=== PATIENT | female | born 1990 | race Caucasian/White ===

== ENCOUNTER 2018-04-22 18:11 | Emergency (ER) | payer OTHER, MEDICAID, SELFPAY ==
--- NOTE | 2018-04-22 18:13 | ED.ABDPAIN ---
HPI - Abdominal Pain <MARIE Ibarra - Last Filed: 04/22/18 21:53> General Chief Complaint: Urogenital-Female Stated Complaint: STATES SEVERE ABDOMINAL AND LOWER BACK PAIN Time Seen by Provider: 04/22/18 18:13 Source: patient History of Present Illness HPI narrative: 28-year-old female here for complaint of pain into her left lower abdomen for the last 10 days. She was treated for UTI from her primary care provider's office and prescribed Augmentin. She reports that her symptoms did not resolve after completing the antibiotic regimen. She reports worsening pain over the last 4 days. She denies any fevers but states she has some instances of chills. Pain is to the left lower quadrant radiates into her back/flank area. She states she had slight amount of burning with urination. Last bowel movement was yesterday and was normal. No vomiting. However she does have some nausea at times. She denies any trauma to the area. No other concerns or complaints. She denies any stressors or relievers of the pain. MD complaint: abdominal pain Related Data Home Medications Medication Instructions Recorded Confirmed omeprazole 20 mg PO QDAY #0 11/20/16 Previous Rx's Medication Instructions Recorded albuterol sulfate [Ventolin HFA] 1 - 2 puff INH QID #1 inh 11/20/16 prednisone 40 mg PO AMCC 4 Days #0 tab 11/20/16 norelgestromin-ethin.estradiol 1 tdm TD QWEEK #9 patch 08/04/17 [Xulane] ciprofloxacin HCl 500 mg PO Q12H #14 tab 04/22/18 hydrocodone-acetaminophen 1 tab PO Q6H PRN #12 tab 04/22/18 metronidazole 500 mg PO TID #21 tab 04/22/18 Allergies Allergy/AdvReac Type Severity Reaction Status Date / Time No Known Drug Allergies Allergy Verified 04/22/18 18:18 Review of Systems <MARIE Ibarra - Last Filed: 04/22/18 21:53> Constitutional Reports chills, Denies fever(s), Denies lethargy and Denies weakness Eyes Denies change in vision, Denies eye discharge, Denies irritation and Denies loss of vision Cardiovascular Denies chest pain, Denies irregular heart rhythm, Denies lightheadedness, Denies palpitations and Denies orthopnea Gastrointestinal Gastrointestinal: Reports abdominal pain Genitourinary Denies hematuria, Reports dysuria, Reports flank pain, Denies urinary incontinence and Denies urinary urgency Musculoskeletal Denies back pain, Denies muscle weakness, Denies numbness and Denies tingling Integumentary/Breasts Denies pruritus, Denies erythema, Denies rash and Denies wounds Neurologic Denies confusion, Denies loss of vision, Denies numbness, Denies tingling and Denies weakness Psychiatric Denies anxiety, Denies confusion, Denies depression, Denies homicidal ideation and Denies suicidal ideation Endocrine Denies palpitations Hematologic/Lymphatic Denies easy bruising Exam <MARIE Ibarra - Last Filed: 04/22/18 21:53> Initial Vital Signs Initial Vital Signs: Vital Signs Temperature 97.7 F 04/22/18 18:18 Pulse Rate 101 H 04/22/18 18:18 Respiratory Rate 20 04/22/18 18:18 Blood Pressure 134/76 H 04/22/18 18:18 Pulse Oximetry 97 04/22/18 18:18 Const General: cooperative and well developed Nutritional Appearance: well nourished Orientation: alert, awake, oriented x3 and not confused HENAL Mouth: oral mucosae normal and moist mucous membranes Eyes Conjunctivae: conjunctivae normal Sclera: sclerae normal Pupils: PERRL EOM: EOM intact bilaterally Resp Effort & Inspection: normal respiratory effort, able to speak in complete sentences, no respiratory distress and no use of accessory muscles Auscultation: clear to auscultation bilaterally, no rales, no rhonchi and no wheezes Cardio Rate: regular rate Rhythm: regular rhythm Heart Sounds: no click, no gallops, no murmurs and no rubs GI Inspection: non-distended Palpation: soft, no hepatosplenomegaly, No guarding, No pulsatile mass and tender (Tender left lower quadrant) Auscultation: normal bowel sounds General: No CVA tenderness Skin General: no rashes or lesions noted, No jaundice and No petechiae <Mamta Diaz DO - Last Filed: 04/23/18 00:48> Initial Vital Signs Initial Vital Signs: Vital Signs Temperature 97.7 F 04/22/18 18:18 Pulse Rate 101 H 04/22/18 18:18 Respiratory Rate 20 04/22/18 18:18 Blood Pressure 134/76 H 04/22/18 18:18 Pulse Oximetry 97 04/22/18 18:18 Course <MARIE Ibarra - Last Filed: 04/22/18 21:53> Orders Ordered: ED Orders 04/22/18 18:26 CT abdomen pelvis w con Stat 04/22/18 18:40 Complete Blood Count AUTO DIFF Stat Comprehensive Metabolic Panel Stat Lipase Stat Discontinued Medications Sodium Chloride (Normal Saline 0.9%) 1,000 mls @ 150 mls/hr IV CONT VINICIUS Last Infusion: 04/22/18 20:06 Dose: 0 mls/hr Admin: 04/22/18 18:44 Dose: 1,000 mls/hr Vital Signs - 8 hr 04/22/18 18:18 04/22/18 20:06 Temperature 97.7 F Pulse Rate 101 H 74 Respiratory Rate 20 17 Blood Pressure 134/76 H Blood Pressure [Right Arm] 124/80 H Pulse Oximetry 97 100 <Mamta Diaz DO - Last Filed: 04/23/18 00:48> Orders Ordered: ED Orders 04/22/18 18:26 CT abdomen pelvis w con Stat 04/22/18 18:40 Complete Blood Count AUTO DIFF Stat Comprehensive Metabolic Panel Stat Lipase Stat Discontinued Medications Sodium Chloride (Normal Saline 0.9%) 1,000 mls @ 150 mls/hr IV CONT VINICIUS Last Infusion: 04/22/18 20:06 Dose: 0 mls/hr Admin: 04/22/18 18:44 Dose: 1,000 mls/hr Vital Signs - 8 hr 04/22/18 18:18 04/22/18 20:06 Temperature 97.7 F Pulse Rate 101 H 74 Respiratory Rate 20 17 Blood Pressure 134/76 H Blood Pressure [Right Arm] 124/80 H Pulse Oximetry 97 100 MDM - Abdominal Pain <MARIE Ibarra - Last Filed: 04/22/18 21:53> Lab Data Result diagrams: 04/22/18 18:40 04/22/18 18:40 Lab Results 04/22/18 04/22/18 Range/Units 18:40 18:40 WBC 13.2 H (4.5-11.0) X10^3/uL RBC 4.82 (4.0-5.2) X10^6/uL Hgb 12.8 (12.0-16.0) g/dL Hct 38.5 (36-46) % MCV 79.8 L (80-100) fL MCH 26.6 (26-34) PG MCHC 33.3 (30-36) % RDW 14.6 (11.6-14.8) % Plt Count 366 (150-400) X10^3/uL Neut % (Auto) 71.1 (50-75) % Lymph % (Auto) 19.1 L (25-40) % Haines % (Auto) 6.6 (3-14) % Eos % (Auto) 2.8 (2-4) % Baso % (Auto) 0.4 (0-2) % Neut # (Auto) 9400 H (2270-1304) /uL Sodium 138 (137-145) mmol/L Potassium 3.6 (3.4-5.1) mmol/L Chloride 104 (98-107) mmol/L Carbon Dioxide 23 (22-32) mmol/L BUN 11 (7-17) mg/dL Creatinine 0.60 (0.52-1.04) mg/dL Estimated GFR > 60.0 (>60) mL/min BUN/Creatinine Ratio 18.3 (6-22) Glucose 94 (70-100) mg/dL Calcium 8.7 (8.4-10.2) mg/dL Total Bilirubin 0.4 (0.2-1.3) mg/dL AST 25 (14-36) IU/L ALT 38 (9-52) IU/L Alkaline Phosphatase 88 (38-126) U/L Total Protein 7.2 (6.3-8.2) g/dL Albumin 3.7 (3.5-5.0) g/dL Globulin 3.5 (1.7-4.1) g/dL Albumin/Globulin Ratio 1.1 (1.0-2.8) Lipase 30 (23-300) U/L Imaging Data CT scan - abdomen: Radiologist's impression: Signed Patient: Yamini Monterroso MR#: [id number] : 1990 Acct:[id number] Age/Sex: 28 / F Date of Service: 04/22/18 Loc: ED Accession Number: [id number] Procedure: CT abdomen pelvis w con Ordering Provider: Jhon Thornton PROCEDURE: CT ABDOMEN PELVIS W CON INDICATIONS: Left lower quadrant pain for last 4 days TECHNIQUE: After the administration of intravenous contrast, 5 mm thick sections acquired from the diaphragm to the symphysis. 5 mm coronal and sagittal reformats were acquired. For radiation dose reduction, the following was used: automated exposure control, adjustment of mA and/or kV according to patient size. COMPARISON: None. FINDINGS: Image quality: Excellent. ABDOMEN: Lung bases: Lung bases are clear. Heart size is normal. Solid organs: Liver is normal in size and enhancement. Gallbladder is within normal limits. Biliary system is non dilated. Pancreas enhances normally. Spleen is normal in size and enhancement. No adrenal nodules. Kidneys demonstrate normal size and enhancement, without hydronephrosis. Peritoneum and bowel: Bowel loops demonstrate normal wall thickness and caliber. No free fluid or air. The appendix is normal in caliber. Small, approximately 2 mm diameter appendicolith is noted. Nodes and vessels: No retroperitoneal or mesenteric adenopathy by size criteria. Mild inflammatory changes are noted along the antimesenteric margin of the distal left colon. There is a normal appearing fat situated centrally within the inflammatory changes. Findings compatible with distal left colon and epiploic appendagitis. Aorta and inferior vena cava are normal in size. Miscellaneous: No ventral hernias. PELVIS: Genitourinary: Bladder wall thickness is normal. Small bilateral adnexal cysts. Miscellaneous: No inguinal hernias or adenopathy. Bones: No suspicious bony lesions. No vertebral body compression fractures. IMPRESSION: 1. Left lower colon epiploic appendagitis. 2. Dictated by: Saadia Bedoya MD, PhD on 04/22/2018 at 19:36 Approved by: Saadia Bedoya MD, PhD on 04/22/2018 at 19:42 MDM Narrative Medical decision making narrative: CT of the abdomen was obtained and shows findings consistent with epiploic appendagitis. CBC shows elevated white count at 1:14 p.m. K. Otherwise CBC and Chem panel were unremarkable. Urinalysis was negative for urinary tract infection. Urine was also negative. Discussed case with surgery Dr. Magana who will follow up with patient tomorrow morning. Antibiotics were recommended by surgery she is placed on Cipro and metronidazole. [id number] Tylenol/Motrin as needed for discomfort. Hamilton is prescribed for breakthrough pain. For any worsening symptoms return to the emergency room follow-up with surgery follow up with primary care provider. <Mamta Diaz, - Last Filed: 04/23/18 00:48> Lab Data Lab Results 04/22/18 04/22/18 Range/Units 18:40 18:40 WBC 13.2 H (4.5-11.0) X10^3/uL RBC 4.82 (4.0-5.2) X10^6/uL Hgb 12.8 (12.0-16.0) g/dL Hct 38.5 (36-46) % MCV 79.8 L (80-100) fL MCH 26.6 (26-34) PG MCHC 33.3 (30-36) % RDW 14.6 (11.6-14.8) % Plt Count 366 (150-400) X10^3/uL Neut % (Auto) 71.1 (50-75) % Lymph % (Auto) 19.1 L (25-40) % Haines % (Auto) 6.6 (3-14) % Eos % (Auto) 2.8 (2-4) % Baso % (Auto) 0.4 (0-2) % Neut # (Auto) 9400 H (0154-6786) /uL Sodium 138 (137-145) mmol/L Potassium 3.6 (3.4-5.1) mmol/L Chloride 104 (98-107) mmol/L Carbon Dioxide 23 (22-32) mmol/L BUN 11 (7-17) mg/dL Creatinine 0.60 (0.52-1.04) mg/dL Estimated GFR > 60.0 (>60) mL/min BUN/Creatinine Ratio 18.3 (6-22) Glucose 94 (70-100) mg/dL Calcium 8.7 (8.4-10.2) mg/dL Total Bilirubin 0.4 (0.2-1.3) mg/dL AST 25 (14-36) IU/L ALT 38 (9-52) IU/L Alkaline Phosphatase 88 (38-126) U/L Total Protein 7.2 (6.3-8.2) g/dL Albumin 3.7 (3.5-5.0) g/dL Globulin 3.5 (1.7-4.1) g/dL Albumin/Globulin Ratio 1.1 (1.0-2.8) Lipase 30 (23-300) U/L Discharge Plan Departure Patient Disposition: Home, Self-Care Clinical Impression: Abdominal pain Discharge Date/Time: 04/22/18 20:47 Interventions: ED Discharge Assessment Last Done: 04/22/18 20:45 Instructions: Acute Abdominal Pain Activity Restrictions/Additional Instructions: CT of the abdomen shows epiploic appendagitis which is a inflammation of pouch is along side the colon or large intestine. You are placed on an antibiotic called ciprofloxacin and metronidazole use as directed. Use [id number] Tylenol or Motrin as needed for any discomfort. Follow up with surgery tomorrow morning at 9 o'clock in the morning at the surgery office Dr. Magana will see you then. For any worsening symptoms return to the emergency room. Follow up with her primary care provider. Prescriptions: New metronidazole 500 mg tablet 500 mg PO TID Qty: 21 RF: 0 ciprofloxacin HCl 500 mg tablet 500 mg PO Q12H Qty: 14 RF: 0 hydrocodone-acetaminophen 5-325 mg tablet 1 tab PO Q6H PRN (Reason: pain) Qty: 12 RF: 0 No Action omeprazole 20 MG capsule,delayed release(DR/EC) 20 mg PO QDAY Qty: 0 RF: 0 prednisone 20 MG tablet 40 mg PO AMCC 4 Days Qty: 0 RF: 0 albuterol sulfate [Ventolin HFA] 90 MCG/PUFF HFA aerosol inhaler 1 - 2 puff INH QID Qty: 1 RF: 3 norelgestromin-ethin.estradiol [Xulane] 0.15 MG/0.035 MG patch weekly 1 tdm TD QWEEK Qty: 9 RF: 4 Referrals: Gurvinder Magana MD [Physician] - Dago Ramirez MD [Primary Care Provider] - <Mamta Diaz DO - Last Filed: 04/23/18 00:48> Cosign ED Attending Marielena Attestation: I was immediately available in the department for consultation. Documentation has been reviewed. I agree with assessment and plan.
[2018-04-22 18:18] VITALS: BP 134/76; PULSE 101; RESP 20; TEMP 36.5; O2SAT 97
--- NOTE | 2018-04-22 18:26 | DI.CT.S_ITS ---
PROCEDURE: CT ABDOMEN PELVIS W CON INDICATIONS: Left lower quadrant pain for last 4 days TECHNIQUE: After the administration of intravenous contrast, 5 mm thick sections acquired from the diaphragm to the symphysis. 5 mm coronal and sagittal reformats were acquired. For radiation dose reduction, the following was used: automated exposure control, adjustment of mA and/or kV according to patient size. COMPARISON: None. FINDINGS: Image quality: Excellent. ABDOMEN: Lung bases: Lung bases are clear. Heart size is normal. Solid organs: Liver is normal in size and enhancement. Gallbladder is within normal limits. Biliary system is non dilated. Pancreas enhances normally. Spleen is normal in size and enhancement. No adrenal nodules. Kidneys demonstrate normal size and enhancement, without hydronephrosis. Peritoneum and bowel: Bowel loops demonstrate normal wall thickness and caliber. No free fluid or air. The appendix is normal in caliber. Small, approximately 2 mm diameter appendicolith is noted. Nodes and vessels: No retroperitoneal or mesenteric adenopathy by size criteria. Mild inflammatory changes are noted along the antimesenteric margin of the distal left colon. There is a normal appearing fat situated centrally within the inflammatory changes. Findings compatible with distal left colon and epiploic appendagitis. Aorta and inferior vena cava are normal in size. Miscellaneous: No ventral hernias. PELVIS: Genitourinary: Bladder wall thickness is normal. Small bilateral adnexal cysts. Miscellaneous: No inguinal hernias or adenopathy. Bones: No suspicious bony lesions. No vertebral body compression fractures. IMPRESSION: 1. Left lower colon epiploic appendagitis. 2. Dictated by: Saadia Bedoya MD, PhD on 04/22/2018 at 19:36 Approved by: Saadia Bedoya MD, PhD on 04/22/2018 at 19:42
--- NOTE | 2018-04-22 18:38 | ED_ITS ---
HPI - Abdominal Pain <MARIE Ibarra - Last Filed: 04/22/18 21:53> General Chief Complaint: Urogenital-Female Stated Complaint: STATES SEVERE ABDOMINAL AND LOWER BACK PAIN Time Seen by Provider: 04/22/18 18:13 Source: patient History of Present Illness HPI narrative: 28-year-old female here for complaint of pain into her left lower abdomen for the last 10 days. She was treated for UTI from her primary care provider's office and prescribed Augmentin. She reports that her symptoms did not resolve after completing the antibiotic regimen. She reports worsening pain over the last 4 days. She denies any fevers but states she has some instances of chills. Pain is to the left lower quadrant radiates into her back/ flank area. She states she had slight amount of burning with urination. Last bowel movement was yesterday and was normal. No vomiting. However she does have some nausea at times. She denies any trauma to the area. No other concerns or complaints. She denies any stressors or relievers of the pain. MD complaint: abdominal pain Related Data Home Medications Medication Instructions Recorded Confirmed omeprazole 20 mg PO QDAY #0 11/20/16 Previous Rx's Medication Instructions Recorded albuterol sulfate [Ventolin HFA] 1 - 2 puff INH QID #1 inh 11/20/16 prednisone 40 mg PO AMCC 4 Days #0 tab 11/20/16 norelgestromin-ethin.estradiol 1 tdm TD QWEEK #9 patch 08/04/17 [Xulane] ciprofloxacin HCl 500 mg PO Q12H #14 tab 04/22/18 hydrocodone-acetaminophen 1 tab PO Q6H PRN #12 tab 04/22/18 metronidazole 500 mg PO TID #21 tab 04/22/18 Allergies Allergy/AdvReac Type Severity Reaction Status Date / Time No Known Drug Allergies Allergy Verified 04/22/18 18:18 Review of Systems <MARIE Ibarra - Last Filed: 04/22/18 21:53> Constitutional Reports chills, Denies fever(s), Denies lethargy and Denies weakness Eyes Denies change in vision, Denies eye discharge, Denies irritation and Denies loss of vision Cardiovascular Denies chest pain, Denies irregular heart rhythm, Denies lightheadedness, Denies palpitations and Denies orthopnea Gastrointestinal Gastrointestinal: Reports abdominal pain Genitourinary Denies hematuria, Reports dysuria, Reports flank pain, Denies urinary incontinence and Denies urinary urgency Musculoskeletal Denies back pain, Denies muscle weakness, Denies numbness and Denies tingling Integumentary/Breasts Denies pruritus, Denies erythema, Denies rash and Denies wounds Neurologic Denies confusion, Denies loss of vision, Denies numbness, Denies tingling and Denies weakness Psychiatric Denies anxiety, Denies confusion, Denies depression, Denies homicidal ideation and Denies suicidal ideation Endocrine Denies palpitations Hematologic/Lymphatic Denies easy bruising Exam <MARIE Ibarra - Last Filed: 04/22/18 21:53> Initial Vital Signs Initial Vital Signs: Vital Signs Temperature 97.7 F 04/22/18 18:18 Pulse Rate 101 H 04/22/18 18:18 Respiratory Rate 20 04/22/18 18:18 Blood Pressure 134/76 H 04/22/18 18:18 Pulse Oximetry 97 04/22/18 18:18 Const General: cooperative and well developed Nutritional Appearance: well nourished Orientation: alert, awake, oriented x3 and not confused HENOK Mouth: oral mucosae normal and moist mucous membranes Eyes Conjunctivae: conjunctivae normal Sclera: sclerae normal Pupils: PERRL EOM: EOM intact bilaterally Resp Effort & Inspection: normal respiratory effort, able to speak in complete sentences, no respiratory distress and no use of accessory muscles Auscultation: clear to auscultation bilaterally, no rales, no rhonchi and no wheezes Cardio Rate: regular rate Rhythm: regular rhythm Heart Sounds: no click, no gallops, no murmurs and no rubs GI Inspection: non-distended Palpation: soft, no hepatosplenomegaly, No guarding, No pulsatile mass and tender (Tender left lower quadrant) Auscultation: normal bowel sounds General: No CVA tenderness Skin General: no rashes or lesions noted, No jaundice and No petechiae <Mamta Diaz DO - Last Filed: 04/23/18 00:48> Initial Vital Signs Initial Vital Signs: Vital Signs Temperature 97.7 F 04/22/18 18:18 Pulse Rate 101 H 04/22/18 18:18 Respiratory Rate 20 04/22/18 18:18 Blood Pressure 134/76 H 04/22/18 18:18 Pulse Oximetry 97 04/22/18 18:18 Course <MRAIE Ibarra - Last Filed: 04/22/18 21:53> Orders Ordered: ED Orders 04/22/18 18:26 CT abdomen pelvis w con Stat 04/22/18 18:40 Complete Blood Count AUTO DIFF Stat Comprehensive Metabolic Panel Stat Lipase Stat Discontinued Medications Sodium Chloride (Normal Saline 0.9%) 1,000 mls @ 150 mls/hr IV CONT VINICIUS Last Infusion: 04/22/18 20:06 Dose: 0 mls/hr Admin: 04/22/18 18:44 Dose: 1,000 mls/hr Vital Signs - 8 hr 04/22/18 18:18 04/22/18 20:06 Temperature 97.7 F Pulse Rate 101 H 74 Respiratory Rate 20 17 Blood Pressure 134/76 H Blood Pressure [Right Arm] 124/80 H Pulse Oximetry 97 100 <Mamta Diaz DO - Last Filed: 04/23/18 00:48> Orders Ordered: ED Orders 04/22/18 18:26 CT abdomen pelvis w con Stat 04/22/18 18:40 Complete Blood Count AUTO DIFF Stat Comprehensive Metabolic Panel Stat Lipase Stat Discontinued Medications Sodium Chloride (Normal Saline 0.9%) 1,000 mls @ 150 mls/hr IV CONT VINICIUS Last Infusion: 04/22/18 20:06 Dose: 0 mls/hr Admin: 04/22/18 18:44 Dose: 1,000 mls/hr Vital Signs - 8 hr 04/22/18 18:18 04/22/18 20:06 Temperature 97.7 F Pulse Rate 101 H 74 Respiratory Rate 20 17 Blood Pressure 134/76 H Blood Pressure [Right Arm] 124/80 H Pulse Oximetry 97 100 MDM - Abdominal Pain <MARIE Ibarra - Last Filed: 04/22/18 21:53> Lab Data Result diagrams: 04/22/18 18:40 04/22/18 18:40 Lab Results 04/22/18 04/22/18 Range/Units 18:40 18:40 WBC 13.2 H (4.5-11.0) X10^3/uL RBC 4.82 (4.0-5.2) X10^6/uL Hgb 12.8 (12.0-16.0) g/dL Hct 38.5 (36-46) % MCV 79.8 L (80-100) fL MCH 26.6 (26-34) PG MCHC 33.3 (30-36) % RDW 14.6 (11.6-14.8) % Plt Count 366 (150-400) X10^3/uL Neut % (Auto) 71.1 (50-75) % Lymph % (Auto) 19.1 L (25-40) % [place] % (Auto) 6.6 (3-14) % Eos % (Auto) 2.8 (2-4) % Baso % (Auto) 0.4 (0-2) % Neut # (Auto) 9400 H (3863-5981) /uL Sodium 138 (137-145) mmol/L Potassium 3.6 (3.4-5.1) mmol/L Chloride 104 (98-107) mmol/L Carbon Dioxide 23 (22-32) mmol/L BUN 11 (7-17) mg/dL Creatinine 0.60 (0.52-1.04) mg/dL Estimated GFR > 60.0 (>60) mL/min BUN/Creatinine Ratio 18.3 (6-22) Glucose 94 (70-100) mg/dL Calcium 8.7 (8.4-10.2) mg/dL Total Bilirubin 0.4 (0.2-1.3) mg/dL AST 25 (14-36) IU/L ALT 38 (9-52) IU/L Alkaline Phosphatase 88 (38-126) U/L Total Protein 7.2 (6.3-8.2) g/dL Albumin 3.7 (3.5-5.0) g/dL Globulin 3.5 (1.7-4.1) g/dL Albumin/Globulin Ratio 1.1 (1.0-2.8) Lipase 30 (23-300) U/L Imaging Data CT scan - abdomen: Radiologist's impression: Signed Patient: Yamini Monterroso MR#: [id number] : 1990 Acct:[id number] Age/Sex: 28 / F Date of Service: 04/22/18 Loc: ED Accession Number: [id number] Procedure: CT abdomen pelvis w con Ordering Provider: Jhon Thornton PROCEDURE: CT ABDOMEN PELVIS W CON INDICATIONS: Left lower quadrant pain for last 4 days TECHNIQUE: After the administration of intravenous contrast, 5 mm thick sections acquired from the diaphragm to the symphysis. 5 mm coronal and sagittal reformats were acquired. For radiation dose reduction, the following was used: automated exposure control, adjustment of mA and/or kV according to patient size. COMPARISON: None. FINDINGS: Image quality: Excellent. ABDOMEN: Lung bases: Lung bases are clear. Heart size is normal. Solid organs: Liver is normal in size and enhancement. Gallbladder is within normal limits. Biliary system is non dilated. Pancreas enhances normally. Spleen is normal in size and enhancement. No adrenal nodules. Kidneys demonstrate normal size and enhancement, without hydronephrosis. Peritoneum and bowel: Bowel loops demonstrate normal wall thickness and caliber. No free fluid or air. The appendix is normal in caliber. Small, approximately 2 mm diameter appendicolith is noted. Nodes and vessels: No retroperitoneal or mesenteric adenopathy by size criteria. Mild inflammatory changes are noted along the antimesenteric margin of the distal left colon. There is a normal appearing fat situated centrally within the inflammatory changes. Findings compatible with distal left colon and epiploic appendagitis. Aorta and inferior vena cava are normal in size. Miscellaneous: No ventral hernias. PELVIS: Genitourinary: Bladder wall thickness is normal. Small bilateral adnexal cysts. Miscellaneous: No inguinal hernias or adenopathy. Bones: No suspicious bony lesions. No vertebral body compression fractures. IMPRESSION: 1. Left lower colon epiploic appendagitis. 2. Dictated by: Saadia Bedoya MD, PhD on 04/22/2018 at 19:36 Approved by: Saadia Bedoya MD, PhD on 04/22/2018 at 19:42 MDM Narrative Medical decision making narrative: CT of the abdomen was obtained and shows findings consistent with epiploic appendagitis. CBC shows elevated white count at 1:14 p.m. K. Otherwise CBC and Chem panel were unremarkable. Urinalysis was negative for urinary tract infection. Urine was also negative. Discussed case with surgery Dr. Magana who will follow up with patient tomorrow morning. Antibiotics were recommended by surgery she is placed on Cipro and metronidazole. [id number] Tylenol/Motrin as needed for discomfort. [place] is prescribed for breakthrough pain. For any worsening symptoms return to the emergency room follow-up with surgery follow up with primary care provider. <Mamta Diaz, - Last Filed: 04/23/18 00:48> Lab Data Lab Results 04/22/18 04/22/18 Range/Units 18:40 18:40 WBC 13.2 H (4.5-11.0) X10^3/uL RBC 4.82 (4.0-5.2) X10^6/uL Hgb 12.8 (12.0-16.0) g/dL Hct 38.5 (36-46) % MCV 79.8 L (80-100) fL MCH 26.6 (26-34) PG MCHC 33.3 (30-36) % RDW 14.6 (11.6-14.8) % Plt Count 366 (150-400) X10^3/uL Neut % (Auto) 71.1 (50-75) % Lymph % (Auto) 19.1 L (25-40) % [place] % (Auto) 6.6 (3-14) % Eos % (Auto) 2.8 (2-4) % Baso % (Auto) 0.4 (0-2) % Neut # (Auto) 9400 H (4059-6808) /uL Sodium 138 (137-145) mmol/L Potassium 3.6 (3.4-5.1) mmol/L Chloride 104 (98-107) mmol/L Carbon Dioxide 23 (22-32) mmol/L BUN 11 (7-17) mg/dL Creatinine 0.60 (0.52-1.04) mg/dL Estimated GFR > 60.0 (>60) mL/min BUN/Creatinine Ratio 18.3 (6-22) Glucose 94 (70-100) mg/dL Calcium 8.7 (8.4-10.2) mg/dL Total Bilirubin 0.4 (0.2-1.3) mg/dL AST 25 (14-36) IU/L ALT 38 (9-52) IU/L Alkaline Phosphatase 88 (38-126) U/L Total Protein 7.2 (6.3-8.2) g/dL Albumin 3.7 (3.5-5.0) g/dL Globulin 3.5 (1.7-4.1) g/dL Albumin/Globulin Ratio 1.1 (1.0-2.8) Lipase 30 (23-300) U/L Discharge Plan Departure Patient Disposition: Home, Self-Care Clinical Impression: Abdominal pain Discharge Date/Time: 04/22/18 20:47 Interventions: ED Discharge Assessment Last Done: 04/22/18 20:45 Instructions: Acute Abdominal Pain Activity Restrictions/Additional Instructions: CT of the abdomen shows epiploic appendagitis which is a inflammation of pouch is along side the colon or large intestine. You are placed on an antibiotic called ciprofloxacin and metronidazole use as directed. Use [id number] Tylenol or Motrin as needed for any discomfort. Follow up with surgery tomorrow morning at 9 o'clock in the morning at the surgery office Dr. Magana will see you then. For any worsening symptoms return to the emergency room. Follow up with her primary care provider. Prescriptions: New metronidazole 500 mg tablet 500 mg PO TID Qty: 21 RF: 0 ciprofloxacin HCl 500 mg tablet 500 mg PO Q12H Qty: 14 RF: 0 hydrocodone-acetaminophen 5-325 mg tablet 1 tab PO Q6H PRN (Reason: pain) Qty: 12 RF: 0 No Action omeprazole 20 MG capsule,delayed release(DR/EC) 20 mg PO QDAY Qty: 0 RF: 0 prednisone 20 MG tablet 40 mg PO AMCC 4 Days Qty: 0 RF: 0 albuterol sulfate [Ventolin HFA] 90 MCG/PUFF HFA aerosol inhaler 1 - 2 puff INH QID Qty: 1 RF: 3 norelgestromin-ethin.estradiol [Xulane] 0.15 MG/0.035 MG patch weekly 1 tdm TD QWEEK Qty: 9 RF: 4 Referrals: Gurvinder Magana MD [Physician] - Dago Ramirez MD [Primary Care Provider] - <Mamta Diaz DO - Last Filed: 04/23/18 00:48> Cosign ED Attending Marielena Attestation: I was immediately available in the department for consultation. Documentation has been reviewed. I agree with assessment and plan.
[2018-04-22] MEDS: SODIUM CHLORIDE 0.9% 1,000 ML 1000 ML IV (18:44)
[2018-04-22 18:50] LABS: Add Manual Diff / Slide Review NO; Basophils Percent Auto 0.4 % (0-2); Eosinophils Percent Auto 2.8 % (2-4); Hematocrit 38.5 % (36-46); Hemoglobin 12.8 g/dL (12.0-16.0); Lymphocytes Percent Auto 19.1 % (25-40); Mean Corpuscular HGB Conc 33.3 % (30-36); Mean Corpuscular Hemoglobin 26.6 PG (26-34); Mean Corpuscular Volume 79.8 fL (80-100); Monocytes Percent Auto 6.6 % (3-14); Neutrophils Absolute Auto 9400 /uL (3000-5900); Neutrophils Percent Auto 71.1 % (50-75); Platelet Count 366 X10^3/uL (150-400); Red Blood Cell Count 4.82 X10^6/uL (4.0-5.2); Red Cell Distribution Width 14.6 % (11.6-14.8); White Blood Cell Count 13.2 X10^3/uL (4.5-11.0)
[2018-04-22 19:00] LABS: Alanine Aminotransferase 38 IU/L (9-52); Albumin 3.7 g/dL (3.5-5.0); Albumin Globulin Ratio 1.1 (1.0-2.8); Alkaline Phosphatase 88 U/L (38-126); Aspartate Aminotransferase 25 IU/L (14-36); BUN Creatinine Ratio 18.3 (6-22); Bilirubin Total 0.4 mg/dL (0.2-1.3); Blood Urea Nitrogen 11 mg/dL (7-17); Calcium 8.7 mg/dL (8.4-10.2); Carbon Dioxide 23 mmol/L (22-32); Chloride 104 mmol/L (98-107); Estimated Glomerular Filt Rate > 60.0 mL/min (>60); Globulin 3.5 g/dL (1.7-4.1); Glucose 94 mg/dL (70-100); HEMOLYSIS < 15 (0-50); Lipase 30 U/L (23-300); Potassium 3.6 mmol/L (3.4-5.1); Sodium 138 mmol/L (137-145); Total Protein 7.2 g/dL (6.3-8.2)
[2018-04-22 20:06] VITALS: BP 124/80; PULSE 74; RESP 17; O2SAT 100
== END 2018-04-22 20:47 | disposition home or self-care (01) ==
PROVIDERS: Emergency Provider Nurse Practitioner Family; Family Provider Family Medicine; PCP Family Medicine
DX: R10.9 Unspecified abdominal pain (principal)
CPT/HCPCS: 36591; 74177; 80053; 81003; 81025; 83690; 85025; 96360; 99283; 99285; Q9967

== ENCOUNTER → 2018-05-24 12:39 | Outpatient (CLI) | payer OTHER, MEDICAID, SELFPAY ==
[2018-05-24 14:52] LABS: Hemoglobin A1C% w Est Avg Glu 5.1 % (4.0-6.0)
== END ==
PROVIDERS: PCP Family Medicine; Visit Provider Family Medicine
DX: E66.01 Morbid (severe) obesity due to excess calories (principal)
CPT/HCPCS: 36415; 83036

== ENCOUNTER → 2018-06-17 13:40 | Outpatient (CLI) | payer OTHER, MEDICAID, SELFPAY ==
--- NOTE | 2018-06-17 14:32 | DIET.PN ---
Met for initial MNT for pre-BAR surgery counseling Reports she's tried everything - Wt Watchers, Tracking apps, exercise - doesn't make progress. Gives it 3-6 months to try new diet. Has been overweight all her life and wants to get surgery now before wt really affects health. Has family hx of DM, so wants to avoid getting that. Would like to get gastric sleeve. Tries to exercise. Was using fitbit to track steps w/goal of 10,000 steps daily. Had to decrease goal to 5000 steps daily r/t back pain. Saw P.T. yesterday and is hopeful this will help back so she can resume more walking. Lives w/ and 7yo daughter. 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 Stresses - 7 yo daughter, going back to school ([employer]) for AA degree; hopes to get journalism degree Methods of dealing w/stress: Yoga (does this w/nati sometimes); keeps healthy snacks handy so doesn't give in to worse temptations. ASSESSMENT: Appears very knowledgeable of diet strategies; food comp; tracking intake. Motivated to make lifestyle changes. Knowledgeable of BAR surgery - types, side effects, etc INTERVENTION: Reviewed BAR surgery; brief discussion of changes in diet r/t surgery. Provided education on wt loss tips; dealing w/emotional eating GOAL: Keep food/activity record, F/U every 2 weeks per program requirements
== END ==
PROVIDERS: Family Provider Family Medicine; PCP Family Medicine; Visit Provider Family Medicine
DX: E66.01 Morbid (severe) obesity due to excess calories (principal); Z71.3 Dietary counseling and surveillance
CPT/HCPCS: 97802

== ENCOUNTER → 2018-07-14 15:09 | Outpatient (CLI) | payer OTHER, MEDICAID, SELFPAY ==
--- NOTE | 2018-07-14 16:04 | DIET.PN ---
Met for 2nd consultation- pre BAR surgery Yamini brought with her a notebook provided by David with completed food journal for last 2 weeks. Food journal shows diet unbalanced: heavy in meat and starch; low in veggies, fruit. Started PT and plans to start water aerobics for ow impact exercise r/t back pain. Got 3-4 days of exercise in per week over last couple weeks: yoga and walking. Is feeling a bit stressed with start of school for her 7yo and college starting next week DX: morbid obesity INTERVENTION: Provided feedback on food record and need for improvement. Provided education on healthy plate model for portioning foods and choosing a nutritionally balanced meal PLAN/GOAL: Continue food records; implement healthy plate model; increase vegies/decrease starchy foods. Continue to work on increase exercise. F/U in 2 weeks.
== END ==
PROVIDERS: Family Provider Family Medicine; PCP Family Medicine; Visit Provider Family Medicine
DX: E66.01 Morbid (severe) obesity due to excess calories (principal)
CPT/HCPCS: 97803

== ENCOUNTER 2018-07-19 07:30 | Outpatient (RCR) | payer OTHER, MEDICAID, SELFPAY ==
--- NOTE | 2018-06-16 15:05 | PT.OIE ---
Current Diagnoses Morbid (severe) obesity due to excess calories (06/16/18) Low back pain (06/16/18) Past Medical History (Last Updated 04/23/18 @ 09:28 by Gurvinder Magana MD) Anxiety (Acute) Asthma (Acute) Depression (Acute) Gastroesophageal reflux disease (Acute) Morbid obesity (Acute) Herpes simplex (Chronic) Past Surgical History (Last Reviewed 04/23/18 @ 09:28 by Gurvinder Magana MD) History of colonoscopy (Acute) Status post delivery (04/09/11) Provider Visit Care Team Role Provider Type Dago Ramirez MD Attending Provider Physician Family Provider Primary Care Provider Specialty: [facility] Practice Address: [address] [place] [address], [facility] Email: [email or web address] [facility] Initial Evaluation PT-OP-A Visit Information Start: 06/16/18 09:23 Freq: Status: Active Protocol: Document 06/16/18 09:24 EA (Rec: 06/16/18 09:43 EA [id number]) Out-Patient Physical Therapy Visit Information Visit Information Visit Type Initial Evaluation Visit Start Time 08:15 Visit Stop Time 08:45 Total Visit Minutes 30 Visit Number 1 Evaluation Information Evaluation Date 06/16/18 PT-OP-B Current Condition Start: 06/16/18 09:23 Freq: Status: Active Protocol: Document 06/16/18 09:24 EA (Rec: 06/16/18 09:43 EA [id number]) Current Condition History of Current Condition Onset Date 8 years ago Current Complaints Left radiating low back pain. History of Current Condition Present condition started 8 years ago during the period of 2nd trimester of . Patient had formal PT once with same complaint but denies any progress. Pt seen family doctor 3 wks ago due to increased in low back pain; states pain mostly manages with Yoga but kept coming back . Patient denies any significant injury of medical history related to current condition. Patient denies any loss of strength, tingling sensation, burning to both LE' s. Reports no X-rays or other diagnostic imaging performed in the past. Prior Treatments and Tests OTC medication Future Testing and Treatments Planned Bariartric surgery in 6 months . Treatment Goals Patient/Caregiver Goals Patient wants to eliminate low back pain so she could perform daily activities Patient wants learn HEP that she can perform to improve low back pain and loss weight. 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 Personal Factors Other Personal Factors That May Effect Chronicity of the condition. Therapy/Recovery Obesity PT-OP-C Subjective Start: 06/16/18 09:23 Freq: Status: Active Protocol: Document 06/16/18 09:24 EA (Rec: 06/16/18 09:43 EA [id number]) OP-PT Subjective Patient Comments Patient Comments Present condition started 8 years ago during the period of 2nd trimester of . Patient had formal PT once with same complaint but denies any progress. Pt seen family doctor 3 wks ago due to increased in low back pain; states pain mostly manages with Yoga but kept coming back . Patient denies any significant injury of medical history related to current condition. Patient denies any loss of strength, tingling sensation, burnig to both LE's . She believes that she needs to lose weight to improve pain . Reports no X-rays or other diagnostic imaging performed in the past. Patient Reported Progress Same Patient Questionnaires Oswestry Low Back Index Oswestry Impairment 40 to 59% Impaired (Score 40- 59) OP-PT Pain Assessment Pain Assessment Grid Paper Pain Assessment Grid Completed Yes Location Left Posterior Lateral Back Description Radiating Tender Tightness Pain Aggravating Factors Standing Walking Stair Climbing Pain Alleviating Factors Sitting Massage Other Pain Alleviating Factors Yoga exercises Home Pain Medication Use Pain Medications Used Yes Home Pain Medication Frequency PRN tramadol Pain Behaviors Pain Behaviors Guarding PT-OP-F Manual Assessment Start: 06/16/18 09:23 Freq: Status: Active Protocol: Document 06/16/18 13:27 EA (Rec: 06/16/18 13:44 EA [id number]) Manual Assessments Soft Tissue Assessment Soft Tissue Mobility Assessment Left Ql, Paralumabars muscles PT-OP-G Mobility & Gait Start: 06/16/18 09:23 Freq: Status: Active Protocol: Document 06/16/18 09:24 EA (Rec: 06/16/18 14:38 EA [id number]) OP Gait Assessment Gait Gait Assistance Required: Independent Gait Deviations General Gait Pattern Lateral Trunk Lean PT-OP-J Posture/Palpation/Skin Start: 06/16/18 09:23 Freq: Status: Active Protocol: Document 06/16/18 13:27 EA (Rec: 06/16/18 13:44 EA [id number]) Posture Evaluation Position Standing Evaluation View Lateral L-Spine Posture Increased Lordosis Knee Posture (L) Genu Valgus (R) Genu Valgus Palpation Assessment Location Three Palpation Location IB band Left/ hip ER Palpation Findings Tenderness Two Palpation Location upper gluteals, L Palpation Findings Soft Tissue Tightness Tenderness One Palpation Location Paralumbars Palpation Findings Soft Tissue Tightness Tenderness PT-OP-K Range of Motion Start: 06/16/18 09:23 Freq: Status: Active Protocol: Document 06/16/18 13:27 EA (Rec: 06/16/18 13:44 EA [id number]) Lumbar Spine Range of Motion Lumbar Spine Active Testing Position standing Flexion 45 Extension 40 Rotation Left 45 Rotation Right 45 Lateral Flexion Left 35 Lateral Flexion Right 30 ROM Limitations Soft Tissue Tightness Pain Comments SB to right , SB to left with rot to left, Bending FWD in PT-OP-L Special Tests Start: 06/16/18 09:23 Freq: Status: Active Protocol: Document 06/16/18 13:27 EA (Rec: 06/16/18 13:44 EA [id number]) Special Tests Hip Special Tests GAYLA Test Results - Piriformis Test Results - Other Special Tests Special Tests Sacral compression test = positive Joseph's test= positive SLR to right leg = Positive SI joint. PT-OP-M Strength Start: 06/16/18 09:23 Freq: Status: Active Protocol: Document 06/16/18 13:27 EA (Rec: 06/16/18 13:44 EA [id number]) Trunk Strength Trunk Manual Muscle Testing Flexion 4+ Good+ Extension 4+ Good+ Rotation Left 4+ Good+ Rotation Right 4+ Good+ Lateral Flexion Left 4+ Good+ Lateral Flexion Right 4+ Good+ PT-OP-Q Treatments Start: 06/16/18 09:23 Freq: Status: Active Protocol: Document 06/16/18 09:24 EA (Rec: 06/16/18 14:32 EA [id number]) Self-Care/Home Management Treatment Education Patient Education Body Mechanics Home Exercise Program Pain Management Posture PT-OP-T Assessment and Plan Start: 06/16/18 09:23 Freq: Status: Active Protocol: Document 06/16/18 13:27 EA (Rec: 06/16/18 13:44 EA [id number]) Physical Therapy Assessment Rehab Potential Rehabilitation Potential Good Evaluation Complexity Number of Personal Factors/Comorbidities 1-2 Number of Body Systems Impaired 1-2 Clinical Presentation at Evaluation Stable Impairments Impairments Gait Pain Posture Soft Tissue Mobility Strength Goals Five Impairment Limited knowledge to safe weight loss fitness exercises Information Services Manager Goal (LTG) Patient will be profecient to whole body exercises to further improve weight loss. LTG Duration 4 wks Four Impairment Abnormal low back Posture Information Services Manager Goal (LTG) Patient will exhibit functional low back posture. LTG Duration 5 wks Three Impairment Grade 2 Tenderness to paralumbars, left QL, IT band Information Services Manager Goal (LTG) Patient will exhibit no tenderness to left paralumbars, left QL, IT band. LTG Duration 5 wks Two Impairment Impaired paralumbars, quads, IT band, and QL flexibility Half-Way Goal (LTG) Patient will exhibit full excursion to left paralumbars, QL, IT band, and quads to decreased pain and improve function. LTG Duration 5 wks One Impairment Oswestry low back pain impairment scale of 40-60% impaired Half-Way Goal (LTG) Patient will have Oswestry score of 1-19% impairment. LTG Duration 5 wks Assessment Summary Assessment Pleasant 28 y/o F patient diagnosed with low back pain presented today with signs and symptoms consistent with left SI jnt strain, left paralumbars tightness. Lumbar Special tests reveals not sensitive to neural involvement. All test in strength to both LE demonstrates normal, however, core strength is fair during the test. Increased lumbar lordosis with obese BW likely contribute to the main issue. Due to low back pain, patient has limited standing and walking tolerance. In my professional opinion, patient is a good candidate for skilled PT to address the aforementioned issues. Physical Therapy Plan Frequency and Duration Frequency of Treatment 1x/Week Plan of Care Start Date 06/16/18 Plan of Care End Date 09/08/18 Therapeutic Interventions Therapeutic Interventions Home Exercise Program Joint Mobilizations Manual Therapy Patient/Caregiver Education Self-Care/Home Management Soft Tissue Mobilization Therapeutic Exercises Modalities Cold Pack/Ice Massage Electric Stimulation Hot Packs Next Visit Focus/Plan Next Note Type Treatment Note Next Visit Plan HEP, modalities.
--- NOTE | 2018-06-16 15:07 | PT.OPPOC ---
Current Diagnoses Morbid (severe) obesity due to excess calories (06/16/18) Low back pain (06/16/18) Provider Visit Care Team Role Provider Type Dago Ramirez MD Attending Provider Physician Family Provider Primary Care Provider Specialty: Family Practice [place], [address] Email: [email or web address] Plan Of Care PT-OP-T Assessment and Plan Start: 06/16/18 09:23 Freq: Status: Active Protocol: Document 06/16/18 13:27 EA (Rec: 06/16/18 13:44 EA [id number]) Physical Therapy Assessment Rehab Potential Rehabilitation Potential Good Evaluation Complexity Number of Personal Factors/Comorbidities 1-2 Number of Body Systems Impaired 1-2 Clinical Presentation at Evaluation Stable Impairments Impairments Gait Pain Posture Soft Tissue Mobility Strength Goals Five Impairment Limited knowledge to safe weight loss fitness exercises [facility] Goal (LTG) Patient will be profecient to whole body exercises to further improve weight loss. LTG Duration 4 wks Four Impairment Abnormal low back Posture [facility] Goal (LTG) Patient will exhibit functional low back posture. LTG Duration 5 wks Three Impairment Grade 2 Tenderness to paralumbars, left QL, IT band [facility] Goal (LTG) Patient will exhibit no tenderness to left paralumbars, left QL, IT band. LTG Duration 5 wks Two Impairment Impaired paralumbars, quads, IT band, and QL flexibility [facility] Goal (LTG) Patient will exhibit full excursion to left paralumbars, QL, IT band, and quads to decreased pain and improve function. LTG Duration 5 wks One Impairment Oswestry low back pain impairment scale of 40-60% impaired [facility] Goal (LTG) Patient will have Oswetry score of 1-19% impairment. LTG Duration 5 wks Assessment Summary Assessment Pleasant 28 y/o F patient diagnosed with low back pain presented today with signs and symptoms consistent with left SI jnt strain, left paralumbars tightness. Lumbar Special tests reveals not sensitive to neural involvement. All test in strength to both LE demonstrates normal, however, core strength is fair during the test. Increased lumbar lordosis with obese BW likely contribute to the main issue. Due to low back pain, patient has limited standing and walking tolerance. In my professional opinion, patient is a good candidate for skilled PT to address the aforementioned issues. Physical Therapy Plan Frequency and Duration Frequency of Treatment 1x/Week Plan of Care Start Date 06/16/18 Plan of Care End Date 09/08/18 Therapeutic Interventions Therapeutic Interventions Home Exercise Program Joint Mobilizations Manual Therapy Patient/Caregiver Education Self-Care/Home Management Soft Tissue Mobilization Therapeutic Exercises Modalities Cold Pack/Ice Massage Electric Stimulation Hot Packs Next Visit Focus/Plan Next Note Type Treatment Note Next Visit Plan HEP, modalities. Plan of Care Dates Plan of Care Start Date 06/16/18 Plan of Care End Date 09/08/18 Please Sign and Return: I have reviewed this Plan of Care and certify that the skilled therapy services above are required to meet the patient?s needs. Physician Signature Date Printed Name and Credentials Clinical Instructor Signature Printed Name and Credentials
--- NOTE | 2018-07-01 08:13 | PT.OTN ---
Current Diagnoses Morbid (severe) obesity due to excess calories (06/16/18) Low back pain (06/16/18) Physical Therapy Treatment Note PT-OP-A Visit Information Start: 06/16/18 09:23 Freq: Status: Active Protocol: Document 07/01/18 08:12 EA (Rec: 07/01/18 08:13 EA [id number]) Out-Patient Physical Therapy Visit Information Visit Information Visit Type Patient No Show Visit Note Foreman Or Supervisor And Operator left a voice message at 8:15. PT-OP-B Current Condition Start: 06/16/18 09:23 Freq: Status: Active Protocol: Document 06/16/18 09:24 EA (Rec: 06/16/18 09:43 EA [id number]) Current Condition History of Current Condition Onset Date 8 years ago Current Complaints Left radiating low back pain. History of Current Condition Present condition started 8 years ago during the period of 2nd trimester of . Patient had formal PT once with same complaint but denies any progress. Pt seen family doctor 3 wks ago due to increased in low back pain; states pain mostly manages with Yoga but kept coming back . Patient denies any significant injury of medical history related to current condition. Patient denies any loss of strength, tingling sensation, burning to both LE' s. Reports no X-rays or other diagnostic imaging performed in the past. Prior Treatments and Tests OTC medication Future Testing and Treatments Planned Bariartric surgery in 6 months . Treatment Goals Patient/Caregiver Goals Patient wants to eliminate low back pain so she could perform daily activities Patient wants learn HEP that she can perform to improve low back pain and loss weight. 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 Personal Factors Other Personal Factors That May Effect Chronicity of the condition. Therapy/Recovery Obesity PT-OP-C Subjective Start: 06/16/18 09:23 Freq: Status: Active Protocol: Document 06/16/18 09:24 EA (Rec: 06/16/18 09:43 EA [id number]) OP-PT Subjective Patient Comments Patient Comments Present condition started 8 years ago during the period of 2nd trimester of . Patient had formal PT once with same complaint but denies any progress. Pt seen family doctor 3 wks ago due to increased in low back pain; states pain mostly manages with Yoga but kept coming back . Patient denies any significant injury of medical history related to current condition. Patient denies any loss of strength, tingling sensation, burnig to both LE's . She believes that she needs to lose weight to improve pain . Reports no X-rays or other diagnostic imaging performed in the past. Patient Reported Progress Same Patient Questionnaires Oswestry Low Back Index Oswestry Impairment 40 to 59% Impaired (Score 40- 59) OP-PT Pain Assessment Pain Assessment Grid Paper Pain Assessment Grid Completed Yes Location Left Posterior Lateral Back Description Radiating Tender Tightness Pain Aggravating Factors Standing Walking Stair Climbing Pain Alleviating Factors Sitting Massage Other Pain Alleviating Factors Yoga exercises Home Pain Medication Use Pain Medications Used Yes Home Pain Medication Frequency PRN tramadol Pain Behaviors Pain Behaviors Guarding PT-OP-F Manual Assessment Start: 06/16/18 09:23 Freq: Status: Active Protocol: Document 06/16/18 13:27 EA (Rec: 06/16/18 13:44 EA [id number]) Manual Assessments Soft Tissue Assessment Soft Tissue Mobility Assessment Left Ql, Paralumabars muscles PT-OP-G Mobility & Gait Start: 06/16/18 09:23 Freq: Status: Active Protocol: Document 06/16/18 09:24 EA (Rec: 06/16/18 14:38 EA [id number]) OP Gait Assessment Gait Gait Assistance Required: Independent Gait Deviations General Gait Pattern Lateral Trunk Lean PT-OP-J Posture/Palpation/Skin Start: 06/16/18 09:23 Freq: Status: Active Protocol: Document 06/16/18 13:27 EA (Rec: 06/16/18 13:44 EA [id number]) Posture Evaluation Position Standing Evaluation View Lateral L-Spine Posture Increased Lordosis Knee Posture (L) Genu Valgus (R) Genu Valgus Palpation Assessment Location Three Palpation Location IB band Left/ hip ER Palpation Findings Tenderness Two Palpation Location upper gluteals, L Palpation Findings Soft Tissue Tightness Tenderness One Palpation Location Paralumbars Palpation Findings Soft Tissue Tightness Tenderness PT-OP-K Range of Motion Start: 06/16/18 09:23 Freq: Status: Active Protocol: Document 06/16/18 13:27 EA (Rec: 06/16/18 13:44 EA [id number]) Lumbar Spine Range of Motion Lumbar Spine Active Testing Position standing Flexion 45 Extension 40 Rotation Left 45 Rotation Right 45 Lateral Flexion Left 35 Lateral Flexion Right 30 ROM Limitations Soft Tissue Tightness Pain Comments SB to right , SB to left with rot to left, Bending FWD in PT-OP-L Special Tests Start: 06/16/18 09:23 Freq: Status: Active Protocol: Document 06/16/18 13:27 EA (Rec: 06/16/18 13:44 EA [id number]) Special Tests Hip Special Tests GAYLA Test Results - Piriformis Test Results - Other Special Tests Special Tests Sacral compression test = positive Joseph's test= positive SLR to right leg = Positive SI joint. PT-OP-M Strength Start: 06/16/18 09:23 Freq: Status: Active Protocol: Document 06/16/18 13:27 EA (Rec: 06/16/18 13:44 EA [id number]) Trunk Strength Trunk Manual Muscle Testing Flexion 4+ Good+ Extension 4+ Good+ Rotation Left 4+ Good+ Rotation Right 4+ Good+ Lateral Flexion Left 4+ Good+ Lateral Flexion Right 4+ Good+ PT-OP-Q Treatments Start: 06/16/18 09:23 Freq: Status: Active Protocol: Document 06/16/18 09:24 EA (Rec: 06/16/18 14:32 EA [id number]) Self-Care/Home Management Treatment Education Patient Education Body Mechanics Home Exercise Program Pain Management Posture PT-OP-T Assessment and Plan Start: 06/16/18 09:23 Freq: Status: Active Protocol: Document 06/16/18 13:27 EA (Rec: 06/16/18 13:44 EA [id number]) Physical Therapy Assessment Rehab Potential Rehabilitation Potential Good Evaluation Complexity Number of Personal Factors/Comorbidities 1-2 Number of Body Systems Impaired 1-2 Clinical Presentation at Evaluation Stable Impairments Impairments Gait Pain Posture Soft Tissue Mobility Strength Goals Five Impairment Limited knowledge to safe weight loss fitness exercises [facility] Goal (LTG) Patient will be profecient to whole body exercises to further improve weight loss. LTG Duration 4 wks Four Impairment Abnormal low back Posture [facility] Goal (LTG) Patient will exhibit functional low back posture. LTG Duration 5 wks Three Impairment Grade 2 Tenderness to paralumbars, left QL, IT band [employer] Goal (LTG) Patient will exhibit no tenderness to left paralumbars, left QL, IT band. LTG Duration 5 wks Two Impairment Impaired paralumbars, quads, IT band, and QL flexibility [facility] Goal (LTG) Patient will exhibit full excursion to left paralumbars, QL, IT band, and quads to decreased pain and improve function. LTG Duration 5 wks One Impairment Oswestry low back pain impairment scale of 40-60% impaired [employer] Goal (LTG) Patient will have Oswetry score of 1-19% impairment. LTG Duration 5 wks Assessment Summary Assessment Pleasant 28 y/o F patient diagnosed with low back pain presented today with signs and symptoms consistent with left SI jnt strain, left paralumbars tightness. Lumbar Special tests reveals not sensitive to neural involvement. All test in strength to both LE demonstrates normal, however, core strength is fair during the test. Increased lumbar lordosis with obese BW likely contribute to the main issue. Due to low back pain, patient has limited standing and walking tolerance. In my professional opinion, patient is a good candidate for skilled PT to address the aforementioned issues. Physical Therapy Plan Frequency and Duration Frequency of Treatment 1x/Week Plan of Care Start Date 06/16/18 Plan of Care End Date 09/08/18 Therapeutic Interventions Therapeutic Interventions Home Exercise Program Joint Mobilizations Manual Therapy Patient/Caregiver Education Self-Care/Home Management Soft Tissue Mobilization Therapeutic Exercises Modalities Cold Pack/Ice Massage Electric Stimulation Hot Packs Next Visit Focus/Plan Next Note Type Treatment Note Next Visit Plan HEP, modalities.
--- NOTE | 2018-07-12 10:09 | PT.OTN ---
Current Diagnoses Morbid (severe) obesity due to excess calories (07/12/18) Low back pain (07/12/18) Physical Therapy Treatment Note PT-OP-A Visit Information Start: 06/16/18 09:23 Freq: Status: Active Protocol: Document 07/12/18 07:37 EA (Rec: 07/12/18 08:26 EA [id number]) Out-Patient Physical Therapy Visit Information Visit Information Visit Type Treatment Note Visit Start Time 07:30 Visit Stop Time 08:15 Total Visit Minutes 45 Visit Number 2 PT-OP-B Current Condition Start: 06/16/18 09:23 Freq: Status: Active Protocol: Document 06/16/18 09:24 EA (Rec: 06/16/18 09:43 EA [id number]) Current Condition History of Current Condition Onset Date 8 years ago Current Complaints Left radiating low back pain. History of Current Condition Present condition started 8 years ago during the period of 2nd trimester of . Patient had formal PT once with same complaint but denies any progress. Pt seen family doctor 3 wks ago due to increased in low back pain; states pain mostly manages with Yoga but kept coming back . Patient denies any significant injury of medical history related to current condition. Patient denies any loss of strength, tingling sensation, burning to both LE' s. Reports no X-rays or other diagnostic imaging performed in the past. Prior Treatments and Tests OTC medication Future Testing and Treatments Planned Bariartric surgery in 6 months . Treatment Goals Patient/Caregiver Goals Patient wants to eliminate low back pain so she could perform daily activities Patient wants learn HEP that she can perform to improve low back pain and loss weight. 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 Personal Factors Other Personal Factors That May Effect Chronicity of the condition. Therapy/Recovery Obesity PT-OP-C Subjective Start: 06/16/18 09:23 Freq: Status: Active Protocol: Document 07/12/18 07:37 EA (Rec: 07/12/18 08:26 EA [id number]) OP-PT Subjective Patient Comments Patient Comments Pt reports consistent with yoga exercises; states low back pain comes and go. PT-OP-F Manual Assessment Start: 06/16/18 09:23 Freq: Status: Active Protocol: Document 06/16/18 13:27 EA (Rec: 06/16/18 13:44 EA [id number]) Manual Assessments Soft Tissue Assessment Soft Tissue Mobility Assessment Left Ql, Paralumabars muscles PT-OP-G Mobility & Gait Start: 06/16/18 09:23 Freq: Status: Active Protocol: Document 06/16/18 09:24 EA (Rec: 06/16/18 14:38 EA [id number]) OP Gait Assessment Gait Gait Assistance Required: Independent Gait Deviations General Gait Pattern Lateral Trunk Lean PT-OP-J Posture/Palpation/Skin Start: 06/16/18 09:23 Freq: Status: Active Protocol: Document 06/16/18 13:27 EA (Rec: 06/16/18 13:44 EA [id number]) Posture Evaluation Position Standing Evaluation View Lateral L-Spine Posture Increased Lordosis Knee Posture (L) Genu Valgus (R) Genu Valgus Palpation Assessment Location Three Palpation Location IB band Left/ hip ER Palpation Findings Tenderness Two Palpation Location upper gluteals, L Palpation Findings Soft Tissue Tightness Tenderness One Palpation Location Paralumbars Palpation Findings Soft Tissue Tightness Tenderness PT-OP-K Range of Motion Start: 06/16/18 09:23 Freq: Status: Active Protocol: Document 06/16/18 13:27 EA (Rec: 06/16/18 13:44 EA [id number]) Lumbar Spine Range of Motion Lumbar Spine Active Testing Position standing Flexion 45 Extension 40 Rotation Left 45 Rotation Right 45 Lateral Flexion Left 35 Lateral Flexion Right 30 ROM Limitations Soft Tissue Tightness Pain Comments SB to right , SB to left with rot to left, Bending FWD in PT-OP-L Special Tests Start: 06/16/18 09:23 Freq: Status: Active Protocol: Document 06/16/18 13:27 EA (Rec: 06/16/18 13:44 EA [id number]) Special Tests Hip Special Tests GAYLA Test Results - Piriformis Test Results - Other Special Tests Special Tests Sacral compression test = positive Joseph's test= positive SLR to right leg = Positive SI joint. PT-OP-M Strength Start: 06/16/18 09:23 Freq: Status: Active Protocol: Document 06/16/18 13:27 EA (Rec: 06/16/18 13:44 EA [id number]) Trunk Strength Trunk Manual Muscle Testing Flexion 4+ Good+ Extension 4+ Good+ Rotation Left 4+ Good+ Rotation Right 4+ Good+ Lateral Flexion Left 4+ Good+ Lateral Flexion Right 4+ Good+ PT-OP-Q Treatments Start: 06/16/18 09:23 Freq: Status: Active Protocol: Document 07/12/18 07:37 EA (Rec: 07/12/18 08:26 EA [id number]) Cardio Equipment Recumbent Stepper (Sci-Fit) Duration (Minutes) 10 Resistance 2 Seat Position 12 Therapeutic Exercises Supine Exercises 3 Supine Exercise Name partial sit up 2 Supine Exercise Name PPT with SKTC 1 Supine Exercise Name PPT Side bilateral Manual Therapy Treatment Soft Tissue Mobilization 1 Body Location Paralumbars/ upper gluteals Mobilization Type Myofascial Release Rolling Sustained Pressure Intensity/Depth Moderate PT-OP-R Modalities Start: 06/16/18 09:23 Freq: Status: Active Protocol: Document 07/12/18 07:37 EA (Rec: 07/12/18 08:26 EA [id number]) Electric Stimulation Electric Stimulation Interferential Current (IFC) Body Location Paralumabrs Duration (Minutes) 15 Contraction Type Normal Combined With Heat/Cold Cold Pack PT-OP-T Assessment and Plan Start: 06/16/18 09:23 Freq: Status: Active Protocol: Document 07/12/18 07:37 EA (Rec: 07/12/18 08:26 EA [id number]) Physical Therapy Assessment Assessment Summary Assessment Tolerated treatment well. Progress as tolerated Physical Therapy Plan Next Visit Focus/Plan Next Note Type Treatment Note Next Visit Plan Standing exercises; review previous week of cardio exercises.
--- NOTE | 2018-07-19 10:12 | PT.OTN ---
Current Diagnoses Morbid (severe) obesity due to excess calories (07/19/18) Low back pain (07/19/18) Physical Therapy Treatment Note PT-OP-A Visit Information Start: 06/16/18 09:23 Freq: Status: Active Protocol: Document 07/19/18 07:36 EA (Rec: 07/19/18 08:17 EA [id number]) Out-Patient Physical Therapy Visit Information Visit Information Visit Type Treatment Note Visit Start Time 07:30 Visit Stop Time 08:15 Total Visit Minutes 45 Visit Number 3 PT-OP-B Current Condition Start: 06/16/18 09:23 Freq: Status: Active Protocol: Document 06/16/18 09:24 EA (Rec: 06/16/18 09:43 EA [id number]) Current Condition History of Current Condition Onset Date 8 years ago Current Complaints Left radiating low back pain. History of Current Condition Present condition started 8 years ago during the period of 2nd trimester of . Patient had formal PT once with same complaint but denies any progress. Pt seen family doctor 3 wks ago due to increased in low back pain; states pain mostly manages with Yoga but kept coming back . Patient denies any significant injury of medical history related to current condition. Patient denies any loss of strength, tingling sensation, burning to both LE' s. Reports no X-rays or other diagnostic imaging performed in the past. Prior Treatments and Tests OTC medication Future Testing and Treatments Planned Bariartric surgery in 6 months . Treatment Goals Patient/Caregiver Goals Patient wants to eliminate low back pain so she could perform daily activities Patient wants learn HEP that she can perform to improve low back pain and loss weight. 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 Personal Factors Other Personal Factors That May Effect Chronicity of the condition. Therapy/Recovery Obesity PT-OP-C Subjective Start: 06/16/18 09:23 Freq: Status: Active Protocol: Document 07/19/18 07:36 EA (Rec: 07/19/18 08:17 EA [id number]) OP-PT Subjective Patient Comments Patient Comments Pt reports unable to perform cardio exercises much due to busy schedule. Reports feels good after last session. Patient Reported Progress Improving PT-OP-F Manual Assessment Start: 06/16/18 09:23 Freq: Status: Active Protocol: Document 06/16/18 13:27 EA (Rec: 06/16/18 13:44 EA [id number]) Manual Assessments Soft Tissue Assessment Soft Tissue Mobility Assessment Left Ql, Paralumabars muscles PT-OP-G Mobility & Gait Start: 06/16/18 09:23 Freq: Status: Active Protocol: Document 06/16/18 09:24 EA (Rec: 06/16/18 14:38 EA [id number]) OP Gait Assessment Gait Gait Assistance Required: Independent Gait Deviations General Gait Pattern Lateral Trunk Lean PT-OP-J Posture/Palpation/Skin Start: 06/16/18 09:23 Freq: Status: Active Protocol: Document 06/16/18 13:27 EA (Rec: 06/16/18 13:44 EA [id number]) Posture Evaluation Position Standing Evaluation View Lateral L-Spine Posture Increased Lordosis Knee Posture (L) Genu Valgus (R) Genu Valgus Palpation Assessment Location Three Palpation Location IB band Left/ hip ER Palpation Findings Tenderness Two Palpation Location upper gluteals, L Palpation Findings Soft Tissue Tightness Tenderness One Palpation Location Paralumbars Palpation Findings Soft Tissue Tightness Tenderness PT-OP-K Range of Motion Start: 06/16/18 09:23 Freq: Status: Active Protocol: Document 06/16/18 13:27 EA (Rec: 06/16/18 13:44 EA [id number]) Lumbar Spine Range of Motion Lumbar Spine Active Testing Position standing Flexion 45 Extension 40 Rotation Left 45 Rotation Right 45 Lateral Flexion Left 35 Lateral Flexion Right 30 ROM Limitations Soft Tissue Tightness Pain Comments SB to right , SB to left with rot to left, Bending FWD in PT-OP-L Special Tests Start: 06/16/18 09:23 Freq: Status: Active Protocol: Document 06/16/18 13:27 EA (Rec: 06/16/18 13:44 EA [id number]) Special Tests Hip Special Tests GAYLA Test Results - Piriformis Test Results - Other Special Tests Special Tests Sacral compression test = positive Joseph's test= positive SLR to right leg = Positive SI joint. PT-OP-M Strength Start: 06/16/18 09:23 Freq: Status: Active Protocol: Document 06/16/18 13:27 EA (Rec: 06/16/18 13:44 EA [id number]) Trunk Strength Trunk Manual Muscle Testing Flexion 4+ Good+ Extension 4+ Good+ Rotation Left 4+ Good+ Rotation Right 4+ Good+ Lateral Flexion Left 4+ Good+ Lateral Flexion Right 4+ Good+ PT-OP-Q Treatments Start: 06/16/18 09:23 Freq: Status: Active Protocol: Document 07/19/18 07:36 EA (Rec: 07/19/18 08:17 EA [id number]) Cardio Equipment Recumbent Stepper (Sci-Fit) Duration (Minutes) 10 Resistance 2 Seat Position 12 Gym Equipment Cable Column (Body Solid) Rows Resistance 20-30 Reps/Time x 15 reps Hip Abduction Resistance 20-40 Reps/Time 15 reps Shuttle Recovery Bilateral Squats Resistance 50-100 Reps/Time 10 reps x 5 SH Therapeutic Exercises Supine Exercises 3 Supine Exercise Name partial sit up with SLR Reps/Minutes x 10 reps x 2 sets 2 Supine Exercise Name PPT with SKTC Reps/Minutes x 15SH x 2 reps 1 Supine Exercise Name PPT Side bilateral Reps/Minutes X 5 SH x 10 reps Standing Exercises 1 Standing Exercise Name Wall squat with PPT Reps/Minutes x 12 reps x 2 sets Manual Therapy Treatment Soft Tissue Mobilization 1 Body Location Paralumbars/ upper gluteals Mobilization Type Myofascial Release Rolling Sustained Pressure Intensity/Depth Moderate PT-OP-R Modalities Start: 06/16/18 09:23 Freq: Status: Active Protocol: Document 07/19/18 07:36 EA (Rec: 07/19/18 08:17 EA [id number]) Electric Stimulation Electric Stimulation Interferential Current (IFC) Body Location Paralumabrs Duration (Minutes) 15 Contraction Type Normal Combined With Heat/Cold Cold Pack PT-OP-T Assessment and Plan Start: 06/16/18 09:23 Freq: Status: Active Protocol: Document 07/19/18 07:36 EA (Rec: 07/19/18 08:17 EA [id number]) Physical Therapy Assessment Assessment Summary Assessment Patient tolerated treatment with mnior discomfort at leg ups with PPT, however tolerated with modified range. Physical Therapy Plan Next Visit Focus/Plan Next Note Type Treatment Note Next Visit Plan Standing exercises; review prev week of cardio exercises.
--- NOTE | 2018-08-09 12:16 | PT.OTN ---
Current Diagnoses Morbid (severe) obesity due to excess calories (07/19/18) Low back pain (07/19/18) Physical Therapy Treatment Note PT-OP-A Visit Information Start: 06/16/18 09:23 Freq: Status: Active Protocol: Document 08/09/18 12:16 EA (Rec: 08/09/18 12:16 EA [id number]) Out-Patient Physical Therapy Visit Information Visit Information Visit Type Patient No Show Visit Note Director On [employer] left a voice message to follow up with scheduled appointment. PT-OP-B Current Condition Start: 06/16/18 09:23 Freq: Status: Active Protocol: Document 06/16/18 09:24 EA (Rec: 06/16/18 09:43 EA [id number]) Current Condition History of Current Condition Onset Date 8 years ago Current Complaints Left radiating low back pain. History of Current Condition Present condition started 8 years ago during the period of 2nd trimester of . Patient had formal PT once with same complaint but denies any progress. Pt seen family doctor 3 wks ago due to increased in low back pain; states pain mostly manages with Yoga but kept coming back . Patient denies any significant injury of medical history related to current condition. Patient denies any loss of strength, tingling sensation, burning to both LE' s. Reports no X-rays or other diagnostic imaging performed in the past. Prior Treatments and Tests OTC medication Future Testing and Treatments Planned Bariartric surgery in 6 months . Treatment Goals Patient/Caregiver Goals Patient wants to eliminate low back pain so she could perform daily activities Patient wants learn HEP that she can perform to improve low back pain and loss weight. 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 Personal Factors Other Personal Factors That May Effect Chronicity of the condition. Therapy/Recovery Obesity PT-OP-C Subjective Start: 06/16/18 09:23 Freq: Status: Active Protocol: Document 07/19/18 07:36 EA (Rec: 07/19/18 08:17 EA [id number]) OP-PT Subjective Patient Comments Patient Comments Pt reports unable to perform cardio exercises much due to busy schedule. Reports feels good after last session. Patient Reported Progress Improving PT-OP-F Manual Assessment Start: 06/16/18 09:23 Freq: Status: Active Protocol: Document 06/16/18 13:27 EA (Rec: 06/16/18 13:44 EA [id number]) Manual Assessments Soft Tissue Assessment Soft Tissue Mobility Assessment Left Ql, Paralumabars muscles PT-OP-G Mobility & Gait Start: 06/16/18 09:23 Freq: Status: Active Protocol: Document 06/16/18 09:24 EA (Rec: 06/16/18 14:38 EA [id number]) OP Gait Assessment Gait Gait Assistance Required: Independent Gait Deviations General Gait Pattern Lateral Trunk Lean PT-OP-J Posture/Palpation/Skin Start: 06/16/18 09:23 Freq: Status: Active Protocol: Document 06/16/18 13:27 EA (Rec: 06/16/18 13:44 EA [id number]) Posture Evaluation Position Standing Evaluation View Lateral L-Spine Posture Increased Lordosis Knee Posture (L) Genu Valgus (R) Genu Valgus Palpation Assessment Location Three Palpation Location IB band Left/ hip ER Palpation Findings Tenderness Two Palpation Location upper gluteals, L Palpation Findings Soft Tissue Tightness Tenderness One Palpation Location Paralumbars Palpation Findings Soft Tissue Tightness Tenderness PT-OP-K Range of Motion Start: 06/16/18 09:23 Freq: Status: Active Protocol: Document 06/16/18 13:27 EA (Rec: 06/16/18 13:44 EA [id number]) Lumbar Spine Range of Motion Lumbar Spine Active Testing Position standing Flexion 45 Extension 40 Rotation Left 45 Rotation Right 45 Lateral Flexion Left 35 Lateral Flexion Right 30 ROM Limitations Soft Tissue Tightness Pain Comments SB to right , SB to left with rot to left, Bending FWD in PT-OP-L Special Tests Start: 06/16/18 09:23 Freq: Status: Active Protocol: Document 06/16/18 13:27 EA (Rec: 06/16/18 13:44 EA [id number]) Special Tests Hip Special Tests GAYLA Test Results - Piriformis Test Results - Other Special Tests Special Tests Sacral compression test = positive Joseph's test= positive SLR to right leg = Positive SI joint. PT-OP-M Strength Start: 06/16/18 09:23 Freq: Status: Active Protocol: Document 06/16/18 13:27 EA (Rec: 06/16/18 13:44 EA [id number]) Trunk Strength Trunk Manual Muscle Testing Flexion 4+ Good+ Extension 4+ Good+ Rotation Left 4+ Good+ Rotation Right 4+ Good+ Lateral Flexion Left 4+ Good+ Lateral Flexion Right 4+ Good+ PT-OP-Q Treatments Start: 06/16/18 09:23 Freq: Status: Active Protocol: Document 07/19/18 07:36 EA (Rec: 07/19/18 08:17 EA [id number]) Cardio Equipment Recumbent Stepper (Sci-Fit) Duration (Minutes) 10 Resistance 2 Seat Position 12 Gym Equipment Cable Column (Body Solid) Rows Resistance 20-30 Reps/Time x 15 reps Hip Abduction Resistance 20-40 Reps/Time 15 reps Shuttle Recovery Bilateral Squats Resistance 50-100 Reps/Time 10 reps x 5 SH Therapeutic Exercises Supine Exercises 3 Supine Exercise Name partial sit up with SLR Reps/Minutes x 10 reps x 2 sets 2 Supine Exercise Name PPT with SKTC Reps/Minutes x 15SH x 2 reps 1 Supine Exercise Name PPT Side bilateral Reps/Minutes X 5 SH x 10 reps Standing Exercises 1 Standing Exercise Name Wall squat with PPT Reps/Minutes x 12 reps x 2 sets Manual Therapy Treatment Soft Tissue Mobilization 1 Body Location Paralumbars/ upper gluteals Mobilization Type Myofascial Release Rolling Sustained Pressure Intensity/Depth Moderate PT-OP-R Modalities Start: 06/16/18 09:23 Freq: Status: Active Protocol: Document 07/19/18 07:36 EA (Rec: 07/19/18 08:17 EA [id number]) Electric Stimulation Electric Stimulation Interferential Current (IFC) Body Location Paralumabrs Duration (Minutes) 15 Contraction Type Normal Combined With Heat/Cold Cold Pack PT-OP-T Assessment and Plan Start: 06/16/18 09:23 Freq: Status: Active Protocol: Document 07/19/18 07:36 EA (Rec: 07/19/18 08:17 EA [id number]) Physical Therapy Assessment Assessment Summary Assessment Patient tolerated treatment with mnior discomfort at leg ups with PPT, however tolerated with modified range. Physical Therapy Plan Next Visit Focus/Plan Next Note Type Treatment Note Next Visit Plan Standing exercises; review prev week of cardio exercises.
--- NOTE | 2018-10-18 15:03 | PT.OPDS ---
Current Diagnoses Morbid (severe) obesity due to excess calories (07/19/18) Low back pain (07/19/18) Provider Visit Care Team Role Provider Type Dago Ramirez MD Attending Provider Physician Family Provider Primary Care Provider Specialty: Family Practice [place], [address] Email: [email or web address] Visit Number Visit Number 3 Discharge Summary PT-OP-B Current Condition Start: 06/16/18 09:23 Freq: Status: Active Protocol: Document 06/16/18 09:24 EA (Rec: 06/16/18 09:43 EA [id number]) Current Condition History of Current Condition Onset Date 8 years ago Current Complaints Left radiating low back pain. History of Current Condition Present condition started 8 years ago during the period of 2nd trimester of . Patient had formal PT once with same complaint but denies any progress. Pt seen family doctor 3 wks ago due to increased in low back pain; states pain mostly manages with Yoga but kept coming back . Patient denies any significant injury of medical history related to current condition. Patient denies any loss of strength, tingling sensation, burning to both LE' s. Reports no X-rays or other diagnostic imaging performed in the past. Prior Treatments and Tests OTC medication Future Testing and Treatments Planned Bariartric surgery in 6 months . Treatment Goals Patient/Caregiver Goals Patient wants to eliminate low back pain so she could perform daily activities Patient wants learn HEP that she can perform to improve low back pain and loss weight. 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 Personal Factors Other Personal Factors That May Effect Chronicity of the condition. Therapy/Recovery Obesity PT-OP-C Subjective Start: 06/16/18 09:23 Freq: Status: Active Protocol: Document 10/18/18 15:02 EA (Rec: 10/18/18 15:03 EA [id number]) OP-PT Subjective Patient Comments Patient Comments Patient had for no shwo appointment; no returned message recieved. PT-OP-F Manual Assessment Start: 06/16/18 09:23 Freq: Status: Active Protocol: Document 06/16/18 13:27 EA (Rec: 06/16/18 13:44 EA [id number]) Manual Assessments Soft Tissue Assessment Soft Tissue Mobility Assessment Left Ql, Paralumabars muscles PT-OP-G Mobility & Gait Start: 06/16/18 09:23 Freq: Status: Active Protocol: Document 06/16/18 09:24 EA (Rec: 06/16/18 14:38 EA [id number]) OP Gait Assessment Gait Gait Assistance Required: Independent Gait Deviations General Gait Pattern Lateral Trunk Lean PT-OP-J Posture/Palpation/Skin Start: 06/16/18 09:23 Freq: Status: Active Protocol: Document 06/16/18 13:27 EA (Rec: 06/16/18 13:44 EA [id number]) Posture Evaluation Position Standing Evaluation View Lateral L-Spine Posture Increased Lordosis Knee Posture (L) Genu Valgus (R) Genu Valgus Palpation Assessment Location Three Palpation Location IB band Left/ hip ER Palpation Findings Tenderness Two Palpation Location upper gluteals, L Palpation Findings Soft Tissue Tightness Tenderness One Palpation Location Paralumbars Palpation Findings Soft Tissue Tightness Tenderness PT-OP-K Range of Motion Start: 06/16/18 09:23 Freq: Status: Active Protocol: Document 06/16/18 13:27 EA (Rec: 06/16/18 13:44 EA [id number]) Lumbar Spine Range of Motion Lumbar Spine Active Testing Position standing Flexion 45 Extension 40 Rotation Left 45 Rotation Right 45 Lateral Flexion Left 35 Lateral Flexion Right 30 ROM Limitations Soft Tissue Tightness Pain Comments SB to right , SB to left with rot to left, Bending FWD in PT-OP-L Special Tests Start: 06/16/18 09:23 Freq: Status: Active Protocol: Document 06/16/18 13:27 EA (Rec: 06/16/18 13:44 EA [id number]) Special Tests Hip Special Tests GAYLA Test Results - Piriformis Test Results - Other Special Tests Special Tests Sacral compression test = positive Joseph's test= positive SLR to right leg = Positive SI joint. PT-OP-M Strength Start: 06/16/18 09:23 Freq: Status: Active Protocol: Document 06/16/18 13:27 EA (Rec: 06/16/18 13:44 EA [id number]) Trunk Strength Trunk Manual Muscle Testing Flexion 4+ Good+ Extension 4+ Good+ Rotation Left 4+ Good+ Rotation Right 4+ Good+ Lateral Flexion Left 4+ Good+ Lateral Flexion Right 4+ Good+ PT-OP-T Assessment and Plan Start: 06/16/18 09:23 Freq: Status: Active Protocol: Document 10/18/18 15:02 EA (Rec: 10/18/18 15:03 EA [id number]) Physical Therapy Assessment Assessment Summary Assessment Patient is discharge due to non-compliance to scheduled appointments. Physical Therapy Plan Discharge Physical Therapy Discharge Reasons No Longer Attending PT
== END 2018-11-09 12:14 ==
LOC: PHYS 07:30
PROVIDERS: Family Provider Family Medicine; PCP Family Medicine; Visit Provider Family Medicine
DX: E66.01 Morbid (severe) obesity due to excess calories (principal); M54.5 Low back pain
CPT/HCPCS: 97014; 97110; 97140; 97161; 97535; G0283

== ENCOUNTER → 2019-02-26 11:30 | Outpatient (REF) | payer OTHER, SELFPAY | LOC: LAB 11:30 | PROVIDERS: Family Provider Family Medicine; PCP Family Medicine; Visit Provider Family Medicine | DX: N39.0 Urinary tract infection, site not specified (principal) | CPT/HCPCS: 87086 ==

== ENCOUNTER 2019-10-29 17:33 | Emergency (ER) | payer OTHER, SELFPAY ==
[2019-10-29 17:35] VITALS: BP 144/90; PULSE 138; RESP 24; TEMP 36.9; O2SAT 100
--- NOTE | 2019-10-29 17:46 | PC.NURSE ---
Pt states that she has had increased financial stressors and increased difficulty dealing w/ depression. Cut left wrist today after taking alcohol in attempt to harm herself but states she regrets that and has no intention of self harm / suicidal / homicidal actions at this time but wants to get help. Afraid of loosing daughter to [facility] because of financial situation. Tearful but cooperative. a/o x 4.
[2019-10-29 18:02] LABS: Add Manual Diff / Slide Review NO; Basophils Absolute Auto 100 /uL (0-100); Basophils Percent Auto 0.8 % (0-2); Eosinophils Absolute Auto 400 /uL (0-450); Eosinophils Percent Auto 3.4 % (2-4); Hematocrit 42.6 % (36-46); Hemoglobin 14.4 g/dL (12.0-16.0); Lymphocytes Absolute Auto 2700 /uL (1100-4500); Lymphocytes Percent Auto 26.3 % (25-40); Mean Corpuscular HGB Conc 33.7 % (30-36); Mean Corpuscular Hemoglobin 26.5 PG (26-34); Mean Corpuscular Volume 78.6 fL (80-100); Monocytes Absolute Auto 700 /uL (0-900); Neutrophils Absolute Auto 6400 /uL (1500-7000); Neutrophils Percent Auto 62.5 % (50-75); Platelet Count 366 X10^3/uL (150-400); Red Blood Cell Count 5.43 X10^6/uL (4.0-5.2); Red Cell Distribution Width 15.6 % (11.6-14.8); White Blood Cell Count 10.2 X10^3/uL (4.5-11.0)
[2019-10-29 18:14] LABS: Acetaminophen < 10 ug/mL (10-30); Alanine Aminotransferase 94 IU/L (<35); Albumin 4.3 g/dL (3.5-5.0); Albumin Globulin Ratio 1.2 (1.0-2.8); Alkaline Phosphatase 110 U/L (38-126); Aspartate Aminotransferase 88 IU/L (14-36); BUN Creatinine Ratio 8.8 (6-22); Bilirubin Total 0.3 mg/dL (0.2-1.3); Blood Urea Nitrogen 7 mg/dL (7-17); Calcium 8.7 mg/dL (8.4-10.2); Carbon Dioxide 19 mmol/L (22-32); Chloride 110 mmol/L (98-107); Estimated Glomerular Filt Rate > 60.0 mL/min (>60); Ethanol (ETOH) 161 mg/dL; Globulin 3.5 g/dL (1.7-4.1); Glucose 164 mg/dL (70-100); HEMOLYSIS < 15 (0-50); Lipase 43 U/L (23-300); Potassium 3.7 mmol/L (3.4-5.1); Sodium 144 mmol/L (137-145); Total Protein 7.8 g/dL (6.3-8.2)
[2019-10-29 18:15] LABS: Salicylate < 1.0 mg/dL (<20)
[2019-10-29 18:17] VITALS: BP 123/93; PULSE 112; O2SAT 100
--- NOTE | 2019-10-29 18:40 | ED.PSYCH ---
HPI - Psych General Chief Complaint: Psychiatric Symptoms Stated Complaint: Tried to slit wrist Time Seen by Provider: 10/29/19 17:38 Source: patient Mode of arrival: Ambulatory Limitations: no limitations History of Present Illness HPI Narrative: 29-year-old female nonsmoker, heavy drinker with increasing episodes of depression presents with her and a chief complaint of suicidal ideation and cutting of her left forearm. She drank a fair amount of alcohol today and became increasingly upset. There have been multiple contributing factors to her depression lately including financial, alcohol problems amongst her level ones and suicide attempt by her mother. By the time she arrived she no longer has suicidal ideation, she is regretful, tearful and wants help. She denies homicidal ideation. Her laceration demonstrates active bleeding but she denies any numbness, tingling or weakness. She denies ingestion of any pills or illicit drugs. She is otherwise well and free of complaint MD complaint: suicidal ideation and feels depressed Onset (ago): week(s) Duration: resolved prior to arrival History of same: Yes Relieving factors: none Exacerbating factors: alcohol Context: recent alcohol abuse and significant life stressor Associated psychiatric symptoms: depression and suicidal ideation Associated symptoms: denies other symptoms Treatments prior to arrival: none If self harm: admits thoughts of self harm Related Data Home Medications Medication Instructions Recorded Confirmed omeprazole 20 mg PO QDAY #0 11/20/16 10/21/19 bupropion HCl PO 10/21/19 10/21/19 citalopram PO 10/21/19 10/21/19 valacyclovir 500 mg tablet 500 mg PO DAILY 10/21/19 10/21/19 Previous Rx's Medication Instructions Recorded norelgestromin 150 mcg-e.estradiol 1 patch TRANSDERMAL QWEEK #9 patch 03/31/19 35 mcg/24 hr weekly transderm patch albuterol sulfate 90 mcg/actuation 2 puff INHALATION Q4-6H PRN #8 gram 10/21/19 aerosol inhaler inhalational spacing device #1 each 10/21/19 mometasone 50 mcg/actuation nasal 2 spray NASAL DAILY 14 Days #17 10/21/19 spray gram Allergies Allergy/AdvReac Type Severity Reaction Status Date / Time No Known Drug Allergies Allergy Verified 10/21/19 10:58 Review of Systems Constitutional Constitutional: Denies chills, Denies fatigue, Denies fever(s), Denies frequent falls, Denies lethargy and Denies weakness Eyes Eyes: Denies change in vision, Denies eye discharge, Denies irritation and Denies loss of vision ENT Ears, Nose, Mouth, and Throat: Denies change in voice, Denies dizziness, Denies neck pain, Denies sore throat and Denies throat swelling Cardiovascular Cardiovascular: Denies chest pain, Denies irregular heart rhythm, Denies lightheadedness, Denies palpitations, Denies dyspnea, Denies dyspnea on exertion and Denies orthopnea Respiratory Respiratory: Denies cough, Denies dyspnea, Denies dyspnea on exertion and Denies wheezing Gastrointestinal Gastrointestinal: Denies abdominal pain, Denies change in bowel habits, Denies diarrhea, Denies nausea and Denies vomiting Genitourinary Genitourinary: Denies hematuria, Denies flank pain, Denies urinary incontinence and Denies urinary urgency Musculoskeletal Musculoskeletal: Denies back pain, Denies muscle weakness, Denies neck pain, Denies numbness and Denies tingling Integumentary/Breasts Skin/Breast: Denies pruritus, Denies erythema, Denies rash and Reports wounds Neurologic Neurologic: Denies behavioral changes, Denies confusion, Denies dizziness, Denies frequent falls, Denies loss of vision, Denies numbness, Denies tingling and Denies weakness Psychiatric Psychiatric: Denies anxiety, Denies behavioral changes, Denies confusion, Reports depression, Denies homicidal ideation and Reports suicidal ideation Endocrine Endocrine: Denies fatigue, Denies flushing and Denies palpitations Hematologic/Lymphatic Hematologic/Lymphatic: Denies easy bruising Allergic/Immunologic Allergic/Immunologic: Denies urticaria, Denies throat swelling and Denies wheezing Patient History Medical History Anxiety (Acute) Asthma (Acute) Depression (Acute) Gastroesophageal reflux disease (Acute) Herpes simplex (Chronic) Morbid obesity (Acute) Surgical History History of colonoscopy (Acute) Status post delivery (04/09/11) Family History Father Diabetes mellitus Grandmother Stroke Grandfather Cancer Social History (Reviewed 10/30/19 @ 01:00 by RAMIRO Bush Smoking Status: Never smoker Smoking Status: Never smoker alcohol intake frequency: 0-2 drinks per day Substance Use Type: does not use Exam Narrative Exam Narrative: GENERAL: [29] year old patient appears stated age. Tearful, upset, crying, morbidly obese HEAD: Atraumatic. Normocephalic. EYES: Pupils equal round and reactive. Extraocular motions intact. No scleral icterus. No injection or drainage. ENT: Nose without bleeding, purulent drainage. Throat without erythema, tonsillar hypertrophy or exudate. Airway patent. NECK: Trachea midline. Non tender CARDIOVASCULAR: Regular rate and rhythm without murmurs, gallops, or rubs. RESPIRATORY: Clear to auscultation. Breath sounds equal bilaterally. No wheezes, rales, or rhonchi. GASTROINTESTINAL: Abdomen soft, non-tender, nondistended. EXTREMITIES: 4 cm laceration on volar aspect of left forearm with minimal active bleeding. This is viewed in a bloodless field and no critical structures involved such as artery, nerve or tendon. Patient has full range of motion and strength of wrist and fingers. Cap refill intact No edema or joint tenderness. BACK: Nontender without deformity or crepitance. No flank tenderness. NEURO: AOx3. SKIN: No rash or erythema of visible areas Initial Vital Signs Initial Vital Signs: Vital Signs Temperature 98.4 F 10/29/19 17:35 Pulse Rate 138 H 10/29/19 17:35 Respiratory Rate 24 10/29/19 17:35 Blood Pressure 144/90 H 10/29/19 17:35 Pulse Oximetry 100 10/29/19 17:35 Procedures Laceration Repair Laceration 1: Site: upper extremity Side (If applicable): left Size (cm): 4 Description: linear Depth: involves muscle layer Local Anesthetic: lidocaine 1% and with bicarb Amount of anesthesia used (mL): 6 Pre-repair: wound explored Skin layer closed with: nylon Size (cm): 5-0 Number of sutures: 8 Technique: simple, interrupted Subcutaneous layer closed with: vicryl Size: 4-0 Number of sutures: 3 Technique: simple, interrupted Course Course Course Narrative: Extensive discussion with the patient and her . She is very tearful and regretful and desperately wants to take steps to help improve her situation. She is able to contract for safety and has multiple level ones including family and friends available to help. Nursing has established contact with the crisis team who will reach out to her later that tonight to establish a plan moving forward. She understands return precautions and has had her questions answered to her apparent satisfaction. She has good insight and capacity to make this decision. She is no longer suicidal or homicidal. Patient and family are on board with this plan Orders Ordered: ED Orders 10/29/19 17:39 Consult to [employer] Stat 10/29/19 17:56 Acetaminophen Stat Complete Blood Count AUTO DIFF Stat Comprehensive Metabolic Panel Stat Ethanol (ETOH) Stat Lipase Stat Salicylate Stat Thyroid Stimulating Hormone Stat Discontinued Medications Bacitracin (Bacitracin) 1 applic TOP NOW ONE Stop: 10/29/19 19:18 Last Admin: 10/29/19 19:19 Dose: 1 applic Documented by: BAKARI Lidocaine/Sodium Bicarbonate (Buffered Lidocaine 10 Ml Syr) 10 ml INJ NOW ONE Stop: 10/29/19 18:53 Last Admin: 10/29/19 19:17 Dose: 10 ml Documented by: BAKARI Vital Signs Vital signs: Vital Signs - 8 hr 10/29/19 17:35 10/29/19 18:17 10/29/19 19:09 Temperature 98.4 F Pulse Rate 138 H 112 H 90 Respiratory Rate 24 18 Blood Pressure 144/90 H Blood Pressure [Left Arm] 123/93 H 123/71 Pulse Oximetry 100 100 99 MDM - Psych Lab Data Result diagrams: 10/29/19 17:56 10/29/19 17:56 Labs: Lab Results 10/29/19 10/29/19 10/29/19 Range/Units 17:56 17:56 17:56 WBC 10.2 (4.5-11.0) X10^3/uL RBC 5.43 H (4.0-5.2) X10^6/uL Hgb 14.4 (12.0-16.0) g/dL Hct 42.6 (36-46) % MCV 78.6 L (80-100) fL MCH 26.5 (26-34) PG MCHC 33.7 (30-36) % RDW 15.6 H (11.6-14.8) % Plt Count 366 (150-400) X10^3/uL Neut % (Auto) 62.5 (50-75) % Lymph % (Auto) 26.3 (25-40) % [place] % (Auto) 7.0 (3-14) % Eos % (Auto) 3.4 (2-4) % Baso % (Auto) 0.8 (0-2) % Neut # (Auto) 6400 (9161-1845) /uL Lymph # (Auto) 2700 (0824-4172) /uL [place] # (Auto) 700 (0-900) /uL Eos # (Auto) 400 (0-450) /uL Baso # (Auto) 100 (0-100) /uL Sodium 144 (137-145) mmol/L Potassium 3.7 (3.4-5.1) mmol/L Chloride 110 H (98-107) mmol/L Carbon Dioxide 19 L (22-32) mmol/L BUN 7 (7-17) mg/dL Creatinine 0.80 (0.52-1.04) mg/dL Estimated GFR > 60.0 (>60) mL/min BUN/Creatinine Ratio 8.8 (6-22) Glucose 164 H (70-100) mg/dL Calcium 8.7 (8.4-10.2) mg/dL Total Bilirubin 0.3 (0.2-1.3) mg/dL AST 88 H (14-36) IU/L ALT 94 H (<35) IU/L Alkaline Phosphatase 110 (38-126) U/L Total Protein 7.8 (6.3-8.2) g/dL Albumin 4.3 (3.5-5.0) g/dL Globulin 3.5 (1.7-4.1) g/dL Albumin/Globulin Ratio 1.2 (1.0-2.8) Lipase 43 (23-300) U/L TSH 2.67 (0.47-4.68) uIU/mL Salicylates (<20) mg/dL Acetaminophen < 10 L (10-30) ug/mL Ethyl Alcohol 161 H ( - 10) mg/dL 10/29/ Range/Units 17:56 WBC (4.5-11.0) X10^3/uL RBC (4.0-5.2) X10^6/uL Hgb (12.0-16.0) g/dL Hct (36-46) % MCV (80-100) fL MCH (26-34) PG MCHC (30-36) % RDW (11.6-14.8) % Plt Count (150-400) X10^3/uL Neut % (Auto) (50-75) % Lymph % (Auto) (25-40) % [place] % (Auto) (3-14) % Eos % (Auto) (2-4) % Baso % (Auto) (0-2) % Neut # (Auto) (6573-9076) /uL Lymph # (Auto) (7887-4903) /uL [place] # (Auto) (0-900) /uL Eos # (Auto) (0-450) /uL Baso # (Auto) (0-100) /uL Sodium (137-145) mmol/L Potassium (3.4-5.1) mmol/L Chloride (98-107) mmol/L Carbon Dioxide (22-32) mmol/L BUN (7-17) mg/dL Creatinine (0.52-1.04) mg/dL Estimated GFR (>60) mL/min BUN/Creatinine Ratio (6-22) Glucose (70-100) mg/dL Calcium (8.4-10.2) mg/dL Total Bilirubin (0.2-1.3) mg/dL AST (14-36) IU/L ALT (<35) IU/L Alkaline Phosphatase (38-126) U/L Total Protein (6.3-8.2) g/dL Albumin (3.5-5.0) g/dL Globulin (1.7-4.1) g/dL Albumin/Globulin Ratio (1.0-2.8) Lipase (23-300) U/L TSH (0.47-4.68) uIU/mL Salicylates < 1.0 (<20) mg/dL Acetaminophen (10-30) ug/mL Ethyl Alcohol ( - 10) mg/dL Point of Care Testing Test Results Negative Urine Dip Bedside Urine Glucose Negative Bedside Urine Bilirubin - Negative Bedside Urine Ketone - Negative Urine Specific [place] 1.010 Bedside Urine Occult Blood - Negative Bedside Urine pH 6.5 Bedside Urine Protein - Negative Bedside Urine Urobilinogen - Negative Bedside Urine Nitrite - Negative Bedside Urine Leukocytes - Negative Esterase Discharge Plan Departure Patient Disposition: Home Clinical Impression: Intentional self-harm, Alcohol abuse Depression Qualifiers: Depression Type: major depressive disorder Major depression recurrence: single episode Active/Remission status: remission status unspecified Qualified Code(s): F32.9 - Major depressive disorder, single episode, unspecified Discharge Date/Time: 10/29/19 19:27 Instructions: DI for Suicidal Ideation-Adult Activity Restrictions/Additional Instructions: *You have been diagnosed with [depression, suicidal ideation, self harm, laceration ] *What to do: *Follow up with your primary care provider in 2-3 days, call for an appointment. Let them know you were seen in the Emergency Department and that we ask that you be seen in follow up *The Crisis team will be calling you tonight to create a plan moving forward. *Return to ER if you should have any new, worsening or concerning symptoms Please keep the wound clean and dry to the best of your ability. Please monitor for signs of infection such as redness to the skin or increasing pain. Have the sutures removed by your doctor in about 7 days. If you are unable to get into your doctor, we would be happy to remove the sutures in that same timeframe. Prescriptions: No Action valacyclovir 500 mg tablet 500 mg PO DAILY RF: 0 citalopram PO RF: 0 bupropion HCl PO RF: 0 albuterol sulfate 90 mcg/actuation HFA aerosol inhaler 2 puff INHALATION Q4-6H PRN (Reason: shortness of breath or wheezing) Qty: 8 RF: 0 (DME) Aerochamber MV Spacer See Rx Instructions .ROUTE .MEDSUPPLY Qty: 1 RF: 0 mometasone 50 mcg/actuation spray,non-aerosol 2 spray NASAL DAILY 14 Days Qty: 17 RF: 0 omeprazole 20 MG capsule,delayed release(DR/EC) 20 mg PO QDAY Qty: 0 RF: 0 Xulane 150-35 mcg/24 hr patch weekly 1 patch Transdermal QWEEK Qty: 9 RF: 0 Referrals: [facility] [[facility]] Dago Ramirez MD [Primary Care Provider] -
[2019-10-29 18:51] LABS: Thyroid Stimulating Hormone 2.67 uIU/mL (0.47-4.68)
[2019-10-29 19:09] VITALS: BP 123/71; PULSE 90; RESP 18; O2SAT 99
--- NOTE | 2019-10-29 19:13 | PC.NURSE ---
Spoke w/ DCR/ [facility] crisis assist: gave information and report of pt. They will call patient @ [phone] w/ plan to visit tomorrow. Pt verbalized understanding and agreement w/ plan of care.
[2019-10-29] MEDS: LIDO 1%/SOD BICARB 8.4% (10ML) 10 ML SYRINGE INJ (19:17)
[2019-10-29] MEDS: BACITRACIN OINT 0.9 GM PCKT 1 APPLIC TOP (19:19)
--- NOTE | 2019-10-29 19:20 | PC.NURSE ---
Dr Henderson at bedside
--- NOTE | 2019-10-29 21:10 | PC.NURSE ---
DCR called and was updated on patient / needs / reports.
== END 2019-10-29 19:27 | disposition home or self-care (01) ==
PROVIDERS: Emergency Medicine; Emergency Provider Emergency Medicine; Family Provider Family Medicine; PCP Family Medicine
DX: S61.512A Laceration without foreign body of left wrist, initial encounter (principal); F32.9 Major depressive disorder, single episode, unspecified; R45.851 Suicidal ideations; W26.9XXA Contact with unspecified sharp object(s), initial encounter
CPT/HCPCS: 12002; 36415; 80053; 80320; 80329; 81003; 81025; 83690; 84443; 85025; 99283; 99284; G0480

== ENCOUNTER 2020-06-13 16:19 | Emergency (ER) | payer OTHER, SELFPAY ==
[2020-06-13 16:23] VITALS: BP 139/90; PULSE 100; RESP 18; TEMP 36.1; O2SAT 97; BMI 45.8
[2020-06-13 17:19] LABS: Amorphous Sediment Urine 1+; Bacteria Urine Many (>30); Culture Indicated Urine Specimen Cultured; Mucus Urine 2+ (Negative); RBC Urine 30-100/HPF (0-5/HPF); Squamous Epithelial Cell Urine 1-5 /HPF (0-5/HPF); WBC Urine >100/HPF (0-5/HPF)
[2020-06-13 18:14] VITALS: BP 148/82; PULSE 92; O2SAT 99
--- NOTE | 2020-06-14 01:52 | ED_ITS ---
HPI - Female Genitourinary General Chief complaint: Urogenital-Female Stated complaint: thinks kidney infection Time Seen by Provider: 06/13/20 18:03 Source: patient Mode of arrival: Ambulatory Limitations: no limitations History of Present Illness HPI Narrative: 30F non smoker with the chief complaint of dysuria, frequency, urgency and some flank pain with nausea for the past day or 2. She has had subjective fever. She is not dizzy nor weak or lightheaded. She has had urinary complaints and UTI with pyelonephritis in the past and states this feels very similar. MD Complaint: UTI Onset (ago): hour(s) Female Urogenital Radiation: R Flank Severity: moderate Related Data Previous Rx's Medication Instructions Recorded inhalational spacing device #1 each 10/21/19 albuterol sulfate 90 mcg/actuation 2 puff INHALATION Q4-6H PRN #8 gram 04/20/20 aerosol inhaler bupropion HCl 150 mg 24 hr tablet, 150 mg PO QAM #90 tab 04/20/20 extended release citalopram 40 mg tablet 40 mg PO DAILY #90 tab 04/20/20 diphth,pertus(acell),tetanus 2.5 0.5 ml IM ONCE #0.5 ml 04/20/20 Lf unit-8 mcg-5 Lf/0.5mL IM syringe omeprazole 20 mg capsule,delayed 20 mg PO QDAY #90 cap 04/20/20 release valacyclovir 500 mg tablet 500 mg PO DAILY #90 tab 04/20/20 ketorolac 10 mg PO Q6H PRN #14 tab 06/13/20 ondansetron 4 mg PO TID-QID PRN #10 tab 06/13/20 sulfamethoxazole-trimethoprim 1 tab PO BID 10 Days #20 tab 06/13/20 [Bactrim DS] Allergies Allergy/AdvReac Type Severity Reaction Status Date / Time No Known Drug Allergies Allergy Verified 10/21/19 10:58 Review of Systems Constitutional Constitutional: Reports chills, Denies fatigue, Reports fever(s), Denies frequent falls, Denies lethargy and Denies weakness Eyes Eyes: Denies change in vision, Denies eye discharge, Denies irritation and Denies loss of vision ENT Ears, Nose, Mouth, and Throat: Denies change in voice, Denies dizziness, Denies neck pain, Denies sore throat and Denies throat swelling Cardiovascular Cardiovascular: Denies chest pain, Denies irregular heart rhythm, Denies lightheadedness, Denies palpitations, Denies dyspnea, Denies dyspnea on exertion and Denies orthopnea Respiratory Respiratory: Denies cough, Denies dyspnea, Denies dyspnea on exertion and Denies wheezing Gastrointestinal Gastrointestinal: Denies abdominal pain, Denies change in bowel habits, Denies diarrhea and Reports nausea Genitourinary Genitourinary: Reports dysuria, Reports dysuria and Reports urinary urgency Genitourinary: Reports dysuria, Reports dysuria and Reports urinary urgency Musculoskeletal Musculoskeletal: Reports back pain, Denies neck pain and Denies numbness Integumentary/Breasts Skin/Breast: Denies pruritus, Denies erythema, Denies rash and Denies wounds Neurologic Neurologic: Denies behavioral changes, Denies confusion, Denies dizziness, Denies frequent falls, Denies loss of vision, Denies numbness and Denies weakness Psychiatric Psychiatric: Denies anxiety, Denies behavioral changes, Denies confusion, Denies depression, Denies homicidal ideation and Denies suicidal ideation Endocrine Endocrine: Denies fatigue, Denies flushing and Denies palpitations Hematologic/Lymphatic Hematologic/Lymphatic: Denies easy bruising Allergic/Immunologic Allergic/Immunologic: Denies urticaria, Denies throat swelling and Denies wheezing Patient History Medical History Alcohol cessation counseling (Acute) Anxiety (Acute) Asthma (Acute) Cannabis dependence, daily use (Acute) Depression (Acute) Depression with anxiety (Acute) Gastroesophageal reflux disease (Acute) Herpes simplex (Chronic) History of ovarian cyst (Acute) Morbid obesity (Acute) Obesity (Acute) Unwanted fertility (Acute) Surgical History History of colonoscopy (Acute) Status post delivery (04/09/11) Family History Father Diabetes mellitus Grandmother Stroke Grandfather Cancer alcohol intake frequency: 0-2 drinks per day Substance Use Type: marijuana Exam Narrative Exam Narrative: GENERAL: [30] year old patient appears stated age. Well- nourished, well-developed patient, in mild distress. HEAD: Atraumatic. Normocephalic. EYES: Pupils equal round and reactive. Extraocular motions intact. No scleral icterus. No injection or drainage. ENT: Nose without bleeding, purulent drainage. Throat without erythema, tonsillar hypertrophy or exudate. Airway patent. NECK: Trachea midline. Non tender CARDIOVASCULAR: Regular rate and rhythm without murmurs, gallops, or rubs. RESPIRATORY: Clear to auscultation. Breath sounds equal bilaterally. No wheezes, rales, or rhonchi. GASTROINTESTINAL: Abdomen soft, non-tender, nondistended. EXTREMITIES: No edema or joint tenderness. BACK: Nontender without deformity or crepitance. Mild left flank tenderness to palpation SKIN: No rash or erythema of visible areas Initial Vital Signs Initial Vital Signs: Vital Signs Temperature 97.0 F L 06/13/20 16:23 Pulse Rate 100 H 06/13/20 16:23 Respiratory Rate 18 06/13/20 16:23 Blood Pressure 139/90 06/13/20 16:23 Pulse Oximetry 97 06/13/20 16:23 Course Vital Signs Vital signs: Vital Signs - 8 hr 06/13/20 18:14 Pulse Rate 92 H Blood Pressure 148/82 H Pulse Oximetry 99 MDM - Female Genitourinary Lab Data Labs: Lab Results 06/13/20 Range/Units 16:30 Urine RBC 30-100/hpf H (0-5/HPF) Urine WBC >100/hpf H (0-5/HPF) Ur Squamous Epith Cells 1-5 /hpf (0-5/HPF) Amorphous Sediment 1+ Urine Bacteria Many (>30) H (None) Urine Mucus 2+ H (Negative) Ur Culture Indicated? Specimen cultured Point of Care Testing Test Results Negative Urine Dip Bedside Urine Glucose Negative Bedside Urine Bilirubin - Negative Bedside Urine Ketone - Negative Urine Specific [place] 1.020 Bedside Urine Occult Blood +++ Bedside Urine pH 6.0 Bedside Urine Protein +++ 300 Bedside Urine Urobilinogen - Negative Bedside Urine Nitrite + Positive Bedside Urine Leukocytes +++ 500 Esterase Discharge Plan Departure Patient Disposition: Home Clinical Impression: Pyelonephritis Discharge Date/Time: 06/13/20 18:17 Instructions: DI for Kidney Infection Activity Restrictions/Additional Instructions: *You have been diagnosed with [acute pyelonephritis] *What to do: *Take medications as directed: [facility] *Follow up with your primary care provider in 2-3 days, call for an appointment. Let them know you were seen in the Emergency Department and that we ask that you be seen in follow up *Return to ER if you should have any new, worsening or concerning symptoms Prescriptions: New sulfamethoxazole-trimethoprim [Bactrim DS] 800-160 mg tablet 1 tab PO BID 10 Days Qty: 20 RF: 0 ketorolac 10 mg tablet 10 mg PO Q6H PRN (Reason: pain) Qty: 14 RF: 0 ondansetron 4 mg tablet,disintegrating 4 mg PO TID-QID PRN (Reason: nausea and vomiting) Qty: 10 RF: 0 No Action (DME) Aerochamber MV Spacer See Rx Instructions .ROUTE .MEDSUPPLY Qty: 1 RF: 0 albuterol sulfate 90 mcg/actuation HFA aerosol inhaler 2 puff INHALATION Q4-6H PRN (Reason: shortness of breath or wheezing) Qty: 8 RF: 6 bupropion HCl 150 mg tablet extended release 24 hr 150 mg PO QAM Qty: 90 RF: 3 citalopram 40 mg tablet 40 mg PO DAILY Qty: 90 RF: 3 valacyclovir 500 mg tablet 500 mg PO DAILY Qty: 90 RF: 3 omeprazole 20 mg capsule,delayed release(DR/EC) 20 mg PO QDAY Qty: 90 RF: 3 diphth,pertus(acell),tetanus 2.5-8-5 Lf-mcg-Lf/0.5mL syringe 0.5 ml IM ONCE Qty: 0.5 RF: 0 Referrals: Lesley Cruz ARNP [Primary Care Provider] -
== END 2020-06-13 18:17 | disposition home or self-care (01) ==
PROVIDERS: Emergency Medicine; Emergency Provider Emergency Medicine; Family Provider Family Medicine; PCP Nurse Practitioner; Referring Provider Nurse Practitioner
DX: N10 Acute pyelonephritis (principal); R50.9 Fever, unspecified
CPT/HCPCS: 81003; 81015; 81025; 87077; 87086; 87186; 99282

== ENCOUNTER → 2020-12-01 07:59 | Outpatient (CLI) | payer OTHER, SELFPAY ==
[2020-12-01 08:59] LABS: Add Manual Diff / Slide Review NO; Basophils Absolute Auto 0 /uL (0-100); Basophils Percent Auto 0.3 % (0-2); Eosinophils Absolute Auto 300 /uL (0-450); Eosinophils Percent Auto 2.4 % (2-4); Hematocrit 42.5 % (36-46); Lymphocytes Absolute Auto 1900 /uL (1100-4500); Lymphocytes Percent Auto 17.4 % (25-40); Mean Corpuscular HGB Conc 32.8 % (30-36); Mean Corpuscular Hemoglobin 26.3 PG (26-34); Mean Corpuscular Volume 80.2 fL (80-100); Monocytes Absolute Auto 500 /uL (0-900); Monocytes Percent Auto 4.9 % (3-14); Neutrophils Absolute Auto 8300 /uL (1500-7000); Platelet Count 394 X10^3/uL (150-400); Red Blood Cell Count 5.31 X10^6/uL (4.0-5.2); Red Cell Distribution Width 14.7 % (11.6-14.8); White Blood Cell Count 11.1 X10^3/uL (4.5-11.0)
[2020-12-01 09:11] LABS: Alanine Aminotransferase 28 IU/L (<35); Albumin 4.3 g/dL (3.5-5.0); Albumin Globulin Ratio 1.2 (1.0-2.8); Alkaline Phosphatase 100 U/L (38-126); Aspartate Aminotransferase 26 IU/L (14-36); BUN Creatinine Ratio 14.1 (6-22); Bilirubin Total 0.6 mg/dL (0.2-1.3); Blood Urea Nitrogen 9 mg/dL (7-17); Carbon Dioxide 24 mmol/L (22-32); Chloride 105 mmol/L (98-107); Cholesterol 198 mg/dL (140-199); Estimated Glomerular Filt Rate > 60.0 mL/min (>60); Globulin 3.7 g/dL (1.7-4.1); Glucose 118 mg/dL (70-100); HDL Cholesterol 33 mg/dL (40-60); HEMOLYSIS < 15 (0-50); LDL Cholesterol Calculated 138 mg/dL (<100); Potassium 3.7 mmol/L (3.4-5.1); Sodium 136 mmol/L (137-145); Triglycerides 135 mg/dL (35-150)
[2020-12-01 09:12] LABS: Hemoglobin A1C% w Est Avg Glu 5.2 % (4.0-6.0)
[2020-12-01 09:26] LABS: Free T3, Triiodothyronine Free 3.38 pg/mL (2.77-5.27); Free T4, Direct Thyroxine 0.94 ng/dL (0.78-2.19)
[2020-12-01 09:40] LABS: Thyroid Stimulating Hormone 2.53 uIU/mL (0.47-4.68)
== END ==
PROVIDERS: Family Provider Family Medicine; PCP Nurse Practitioner; Referring Provider Nurse Practitioner; Visit Provider Nurse Practitioner
DX: E66.9 Obesity, unspecified (principal); F41.8 Other specified anxiety disorders; Z00.00 Encounter for general adult medical examination without abnormal findings
CPT/HCPCS: 36415; 80053; 80061; 83036; 84439; 84443; 84481; 85025

== ENCOUNTER → 2021-02-08 12:41 | Outpatient (CLI) | payer OTHER, SELFPAY ==
[2021-02-08] MEDS: COVID-19 VACC, Ad26(JANSSEN)/PF 0.5 ML IM (12:49)
== END ==
PROVIDERS: Family Provider Family Medicine; PCP Nurse Practitioner; Visit Provider Internal Medicine
DX: Z23 Encounter for immunization (principal)
CPT/HCPCS: 0031A; 91303

== ENCOUNTER → 2021-04-08 10:25 | Outpatient (CLI) | payer OTHER, SELFPAY ==
--- NOTE | 2021-04-08 10:26 | DI.US.S_ITS ---
PROCEDURE: US PELVIC COMPLETE INDICATIONS: amenorrhea TECHNIQUE: Real-time scanning was performed of the pelvic organs, with image documentation. Additional endovaginal scanning was necessary due to incomplete visualization of the adnexal and endometrial structures by transabdominal scanning. COMPARISON: None. FINDINGS: Uterus: The uterus measures 4.2 x 3.3 x 3.8 centimeters. The uterus echotexture is normal. Endometrial thickness is normal measuring 3 millimeters. No uterine fibroids. Ovaries: Both ovaries have a normal size and appearance. Both ovaries have greater than 12 peripheral follicles consistent with polycystic ovarian syndrome. Other: No pathologic free abdominal or pelvic fluid. IMPRESSION: 1. No acute abnormality. 2. Greater than 12 peripheral follicles in both ovaries consistent with PCOS. Dictated by: Valeriano Page M.D. on 04/08/2021 at 12:01 Approved by: Valeriano Page M.D. on 04/08/2021 at 12:06
== END ==
LOC: US 10:26
PROVIDERS: Family Provider Family Medicine; PCP Nurse Practitioner; Referring Provider Registered Nurse; Visit Provider Registered Nurse
DX: N91.2 Amenorrhea, unspecified (principal)
CPT/HCPCS: 76830; 76856

== ENCOUNTER → 2021-05-08 07:47 | Outpatient (CLI) | payer SELFPAY ==
[2021-05-08 08:51] LABS: Glucose 109 mg/dL (70-100)
[2021-05-08 17:27] LABS: Follicle Stimulating Hormone 5.38 mIU/mL
[2021-05-10 06:36] LABS: Insulin Level Total 26.9 uIU/mL (2.6-24.9)
== END ==
PROVIDERS: Family Provider Family Medicine; PCP Nurse Practitioner; Referring Provider Obstetrics & Gynecology; Visit Provider Obstetrics & Gynecology
DX: E28.2 Polycystic ovarian syndrome (principal)
CPT/HCPCS: 36415; 82947; 83001; 83002; 83525

== ENCOUNTER → 2021-09-04 10:18 | Outpatient (CLI) | payer OTHER, SELFPAY ==
[2021-09-04 10:39] LABS: Add Manual Diff / Slide Review NO; Basophils Absolute Auto 100 /uL (0-100); Basophils Percent Auto 0.7 % (0-2); Eosinophils Absolute Auto 300 /uL (0-450); Eosinophils Percent Auto 2.7 % (2-4); Hemoglobin 14.7 g/dL (12.0-16.0); Lymphocytes Absolute Auto 2500 /uL (1100-4500); Lymphocytes Percent Auto 23.3 % (25-40); Mean Corpuscular HGB Conc 34.2 % (30-36); Mean Corpuscular Hemoglobin 27.2 PG (26-34); Mean Corpuscular Volume 79.7 fL (80-100); Monocytes Absolute Auto 700 /uL (0-900); Monocytes Percent Auto 6.1 % (3-14); Neutrophils Absolute Auto 7200 /uL (1500-7000); Neutrophils Percent Auto 67.2 % (50-75); Platelet Count 371 X10^3/uL (150-400); Red Cell Distribution Width 14.1 % (11.6-14.8); White Blood Cell Count 10.7 X10^3/uL (4.5-11.0)
[2021-09-04 12:05] LABS: Alanine Aminotransferase 21 IU/L (<35); Albumin 4.5 g/dL (3.5-5.0); Albumin Globulin Ratio 1.4 (1.0-2.8); Alkaline Phosphatase 68 U/L (38-126); Aspartate Aminotransferase 22 IU/L (14-36); BUN Creatinine Ratio 15.9 (6-22); Bilirubin Total 0.5 mg/dL (0.2-1.3); Blood Urea Nitrogen 10 mg/dL (7-17); Calcium 9.7 mg/dL (8.4-10.2); Carbon Dioxide 26 mmol/L (22-32); Chloride 105 mmol/L (98-107); Estimated Glomerular Filt Rate > 60.0 mL/min (>60); Globulin 3.3 g/dL (1.7-4.1); Glucose 97 mg/dL (70-100); HEMOLYSIS < 15 (0-50); Potassium 4.3 mmol/L (3.4-5.1); Sodium 140 mmol/L (137-145); Total Protein 7.8 g/dL (6.3-8.2)
[2021-09-04 12:09] LABS: Lithium < 0.2 mmol/L (0.6-1.2)
[2021-09-04 12:23] LABS: Free T4, Direct Thyroxine 0.94 ng/dL (0.78-2.19)
[2021-09-04 12:37] LABS: Thyroid Stimulating Hormone 2.87 uIU/mL (0.47-4.68)
[2021-09-04 13:50] LABS: Pregnancy Test Urine Negative (Negative)
== END ==
PROVIDERS: Family Provider Family Medicine; PCP Nurse Practitioner; Referring Provider Psychiatry & Neurology Psychiatry; Visit Provider Psychiatry & Neurology Psychiatry
DX: F31.9 Bipolar disorder, unspecified (principal)
CPT/HCPCS: 36415; 80053; 80178; 81025; 84439; 84443; 85025

== ENCOUNTER → 2022-02-22 08:56 | Outpatient (CLI) | payer OTHER, SELFPAY ==
[2022-02-22 10:05] LABS: Hematocrit 41.2 % (36-46); Mean Corpuscular Hemoglobin 27.1 PG (26-34); Mean Corpuscular Volume 79.7 fL (80-100); Platelet Count 394 X10^3/uL (150-400); Red Blood Cell Count 5.16 X10^6/uL (4.0-5.2); Red Cell Distribution Width 14.3 % (11.6-14.8); White Blood Cell Count 12.4 X10^3/uL (4.5-11.0)
[2022-02-22 10:25] LABS: Alanine Aminotransferase 25 IU/L (<35); Albumin 4.4 g/dL (3.5-5.0); Albumin Globulin Ratio 1.2 (1.0-2.8); Alkaline Phosphatase 68 U/L (38-126); Aspartate Aminotransferase 28 IU/L (14-36); BUN Creatinine Ratio 10.4 (6-22); Bilirubin Total 0.9 mg/dL (0.2-1.3); Blood Urea Nitrogen 7 mg/dL (7-17); Carbon Dioxide 25 mmol/L (22-32); Chloride 107 mmol/L (98-107); Cholesterol 185 mg/dL (140-199); Estimated Glomerular Filt Rate > 60 mL/min (>60); Globulin 3.6 g/dL (1.7-4.1); Glucose 99 mg/dL (70-100); HDL Cholesterol 36 mg/dL (40-60); HEMOLYSIS 36 (0-50); Hemoglobin A1C% w Est Avg Glu 5.2 % (4.0-6.0); LDL Cholesterol Calculated 120 mg/dL (<100); Potassium 4.2 mmol/L (3.4-5.1); Sodium 141 mmol/L (137-145); Triglycerides 144 mg/dL (35-150)
[2022-02-22 10:38] LABS: HCG Quantitative /Beta subunit < 2.4 mIU/mL
[2022-02-22 10:45] LABS: Free T3, Triiodothyronine Free 4.29 pg/mL (2.77-5.27); Free T4, Direct Thyroxine 1.08 ng/dL (0.78-2.19)
[2022-02-22 10:58] LABS: Thyroid Stimulating Hormone 2.92 uIU/mL (0.47-4.68)
== END ==
PROVIDERS: Family Provider Family Medicine; PCP Nurse Practitioner; Referring Provider Nurse Practitioner; Visit Provider Nurse Practitioner
DX: E28.2 Polycystic ovarian syndrome (principal); F41.8 Other specified anxiety disorders; F90.2 Attention-deficit hyperactivity disorder, combined type; R73.01 Impaired fasting glucose; Z79.899 Other long term (current) drug therapy; Z30.09 Encounter for other general counseling and advice on contraception
CPT/HCPCS: 36415; 80053; 80061; 83036; 84439; 84443; 84481; 84702; 85027

== ENCOUNTER 2022-03-02 18:17 | Emergency (ER) | payer OTHER, SELFPAY ==
[2022-03-02 18:22] VITALS: BP 130/70; PULSE 88; RESP 20; TEMP 36.4; O2SAT 98
--- NOTE | 2022-03-02 19:35 | ED_ITS ---
HPI - Abdominal Pain <MARIE Hankins - Last Filed: 03/02/22 20:18> General Chief Complaint: Abdominal Pain Stated Complaint: hemroids Time Seen by Provider: 03/02/22 19:27 Source: patient Mode of arrival: Ambulatory History of Present Illness HPI narrative: This is a 32-year-old female who presents to the emergency department with first-time single hemorrhoid which she 1st noticed 3 days ago which is bleeding currently. Patient states this is been tender, it is external, she has been taking ibuprofen which has been helpful but this is getting worse. She also endorses using witch camden and Sitz baths but it has not improved yet. Patient denies any current , she denies any trauma, states that she sits a lot at her job, has never had this happen before. She states she has been using topical hemorrhoid cream. Patient's primary care provider is Dr. Lesley cruz. She took 400 mg of ibuprofen 1 hour prior to arrival. Patient denies any abdominal pain, nausea or vomiting, fever, constipation or any other complaint. Related Data Previous Rx's Medication Instructions Recorded omeprazole 20 mg capsule,delayed 20 mg PO QDAY #90 cap 04/20/20 release metformin 500 mg tablet,extended 500 mg PO DAILY #30 tab 07/29/21 release 24 hr valacyclovir 500 mg tablet See Rx Instructions .ROUTE 11/07/21 .COMPLEX #90 tab methylphenidate HCl 18 mg 18 mg PO DAILY #30 tab 02/20/22 tablet,extended release 24 hr (Concerta) spironolactone 50 mg tablet 50 mg PO QAM #90 tab 02/20/22 drospirenone 3 mg-ethinyl 1 tab PO DAILY #84 tab 02/25/22 estradiol 0.02 mg tablet (CARL (28)) hydrocortisone 2.5 % topical cream 1 applic TOPICAL BID PRN 5 Days 03/02/22 #20 g hydrocortisone acetate 25 mg 25 mg SD DAILY PRN 5 Days #12 ea 03/02/22 rectal suppository (Anusol-HC) pramoxine 1 % topical cream 1 applic TOPICAL QID #340 g 03/02/22 Allergies Allergy/AdvReac Type Severity Reaction Status Date / Time No Known Drug Allergies Allergy Verified 01/28/22 15:30 Review of Systems <MARIE Hankins - Last Filed: 03/02/22 20:18> Review of Systems Narrative: General: denies fever, chills, malaise, sweats, fatigue Head/Neck: denies headache, neck pain, dizziness Eyes: denies visual changes, eye pain Cardio: denies chest pain Respiratory: denies dyspnea, cough GI: denies abdominal pain, nausea, vomiting, or diarrhea, endorses large hemorrhoid, states it bleeds when she wipes : denies dysuria, hematuria, urinary retention, frequency or incontinence MSK: denies joint pain, muscle weakness Skin: denies rash, itching, skin lesions or other Neuro: denies numbness, tingling Patient History <MARIE Hankins - Last Filed: 03/02/22 20:18> Medical History Alcohol cessation counseling Amenorrhea due to medroxyprogesterone Anxiety Asthma Cannabis dependence, daily use 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 Cyst Depression Depression with anxiety Gastroesophageal reflux disease Herpes simplex History of ovarian cyst Morbid obesity Obesity PCOS (polycystic ovarian syndrome) Unwanted fertility Vaginitis Surgical History History of colonoscopy Status post delivery (04/09/11) Family History Father Diabetes mellitus Grandmother Stroke Grandfather Cancer Social History Smoking Status: Never smoker Smoking Status: Never smoker alcohol intake frequency: 0-2 drinks per day Substance Use Type: marijuana Exam <MARIE Hankins - Last Filed: 03/02/22 20:18> Narrative Exam Narrative: Independently reviewed vitals signs and nursing notes. General: cooperative, comfortable, in no acute distress, well developed and well groomed Head: atraumatic, symmetrical facial expressions Neck: supple, atraumatic, without lymphadenopathy. Eyes: pupils equal round and reactive, EOMI, conjunctiva normal Nose: nares patent, no rhinorrhea Mouth/Throat: moist mucus membranes Cardiovascular: regular rate and rhythm, no peripheral edema, warm extremities Respiratory: normal effort, able to speak in complete sentences, no audible wheezing, stridor, or rales. No retractions or tachypnea. GI: abdomen soft, nontender to palpation, nondistended, no masses, no exquisite tenderness with exam, without guarding or rebound. One prolapse hemorrhoid appears to come from the left side of her anus. It is soft, tender to palpation, with a small amount of excoriation MSK: moves all extremities, ambulatory w/steady gait, neurovascularly intact, no weakness Skin: brisk capillary refill, no rash, no erythema Neuro: normal speech and cognition, A&O x3, normal tone Psych: mental status is grossly normal, congruent mood, normal affect, pleasant and cooperative Initial Vital Signs Initial Vital Signs: Vital Signs Temperature 97.5 F L 03/02/22 18:22 Pulse Rate 88 03/02/22 18:22 Respiratory Rate 20 03/02/22 18:22 Blood Pressure 130/70 03/02/22 18:22 Pulse Oximetry 98 03/02/22 18:22 <Fish Babin DO - Last Filed: 03/06/22 18:14> Initial Vital Signs Initial Vital Signs: Vital Signs Temperature 97.5 F L 03/02/22 18:22 Pulse Rate 88 03/02/22 18:22 Respiratory Rate 20 03/02/22 18:22 Blood Pressure 130/70 03/02/22 18:22 Pulse Oximetry 98 03/02/22 18:22 Course <MARIE Hankins - Last Filed: 03/02/22 20:18> Orders Ordered: Discontinued Medications Acetaminophen (Acetaminophen 325 Mg Tablet) 975 mg PO NOW ONE Stop: 03/02/22 19:36 Last Admin: 03/02/22 19:52 Dose: 975 mg Documented by: GER Hydrocortisone (Hydrocortisone 25 Mg Supp) 25 mg SD NOW ONE Stop: 03/02/22 19:28 Last Admin: 03/02/22 20:13 Dose: Not Given Documented by: GER Hydrocortisone (Hydrocortisone 2.5% Cream 30 Gm) 1 applic TOP NOW ONE Stop: 03/02/22 19:28 Last Admin: 03/02/22 20:13 Dose: Not Given Documented by: GER Ibuprofen (Ibuprofen 400 Mg Tablet) 400 mg PO NOW ONE Stop: 03/02/22 19:36 Last Admin: 03/02/22 19:53 Dose: 400 mg Documented by: GER Prednisone (Prednisone 20 Mg Tablet) 20 mg PO NOW ONE Stop: 03/02/22 20:06 Last Admin: 03/02/22 20:10 Dose: 20 mg Documented by: GER Vital Signs Vital signs: Vital Signs - 8 hr 03/02/22 18:22 Temperature 97.5 F L Pulse Rate 88 Respiratory Rate 20 Blood Pressure 130/70 Pulse Oximetry 98 <Fish Babin DO - Last Filed: 03/06/22 18:14> Orders Ordered: Discontinued Medications Acetaminophen (Acetaminophen 325 Mg Tablet) 975 mg PO NOW ONE Stop: 03/02/22 19:36 Last Admin: 03/02/22 19:52 Dose: 975 mg Documented by: GER Hydrocortisone (Hydrocortisone 25 Mg Supp) 25 mg SD NOW ONE Stop: 03/02/22 19:28 Last Admin: 03/02/22 20:13 Dose: Not Given Documented by: GER Hydrocortisone (Hydrocortisone 2.5% Cream 30 Gm) 1 applic TOP NOW ONE Stop: 03/02/22 19:28 Last Admin: 03/02/22 20:13 Dose: Not Given Documented by: GER Ibuprofen (Ibuprofen 400 Mg Tablet) 400 mg PO NOW ONE Stop: 03/02/22 19:36 Last Admin: 03/02/22 19:53 Dose: 400 mg Documented by: GER Prednisone (Prednisone 20 Mg Tablet) 20 mg PO NOW ONE Stop: 03/02/22 20:06 Last Admin: 03/02/22 20:10 Dose: 20 mg Documented by: GER Vital Signs Vital signs: Vital Signs - 8 hr 03/02/22 18:22 Temperature 97.5 F L Pulse Rate 88 Respiratory Rate 20 Blood Pressure 130/70 Pulse Oximetry 98 MDM - Abdominal Pain <MARIE Hankins - Last Filed: 03/02/22 20:18> MDM Narrative Medical decision making narrative: This is a pleasant 32-year-old female presents to the emergency department complaint of worsening hemorrhoid pain for the last 3 days. She has never had a hemorrhoid before, states that it appeared all of a sudden without known cause, and has been painful with sitting, defecation, white being, and any position. She has been using preparation H, which [place], and Sitz baths which she things have been helpful but have not reduce the size of her hemorrhoid. Patient states for her job, states this is probably where it came from. She has been taking stool softeners, recommend continuing these. Attempted to give her hydrocortisone suppository here in the emergency department and we do not stock these currently, no hydrocortisone is available in house, all the pharmacies are closed. Recommend patient go home and use her hydrocortisone cream and to not use it for longer than a week, she was given prescription Anusol suppositories, topical hydrocortisone cream, 2.5%, pramoxine and encouraged to continue Sitz baths, witch [place], stool softeners and follow up with her primary care provider if this is not improving. Encourage patient to use a thick barrier cream she can to help prevent the skin from irritation. Patient was the referral to Dr. Guzman if this does not improve or go way if she needs to have this surgically removed. Patient is appropriate and amenable to discharge home. Vital signs are stable on repeat examination is unremarkable. Patient has been informed of results. Patient has been given strict return to ER precautions for any new or worsening symptoms. Patient understands to follow up closely with outpatient providers as instructed. Patient understands plan and agrees to discharge home. All questions and concerns answered at this time. Discharge Plan Departure Patient Disposition: Home Clinical Impression: Hemorrhoid Qualifiers: Hemorrhoid type: unspecified Qualified Code(s): K64.9 - Unspecified hemorrhoids Instructions: Hemorrhoids Activity Restrictions/Additional Instructions: *You have been diagnosed with a prolapsed hemorrhoid, this means is likely coming from inside and it is attached on the left side near the anus. Please use Tylenol and ibuprofen as needed for your pain, continue with Sitz baths and witch [place] pads to help treat your symptoms, please contact [facility]/Dr. Guzman's office if you would like to seek surgical removal of these. Please do not use hydrocortisone, a steroid for more than 1 week for the concern of bleeding and fragile skin. Continue using your stool softeners, try and find comfortable positions, you can keep using the preparation H and I have given you a pain cream which is pramoxine cream. He may also apply the hydrocortisone cream and preparation H to this area, keep your dose of the hydrocortisone cream thin. Thank you for trusting us with your care, I am sorry were not able to help you all the way today. What are hemorrhoids? Hemorrhoids are swollen veins in the rectum. They can cause itching, bleeding, and pain. Hemorrhoids are very common. In some cases, you can see or feel hemorrhoids around the outside of the rectum. In other cases, you cannot see them because they are hidden inside the rectum (figure 1). What are the symptoms of hemorrhoids? Hemorrhoids do not always cause symptoms. But when they do, symptoms can include: ?Itching of the skin around the anus ?Bleeding ? Bleeding is usually painless. You might see bright red blood after using the toilet. ?Pain ? If a blood clot forms inside a hemorrhoid, this can cause pain. It can also cause a lump that you might be able to feel. ?Swelling ? Hemorrhoids can swell or dangle outside of the rectum during a bowel movement. Should I see a doctor or nurse? You should see a doctor or nurse if you have any symptoms, especially bleeding or if your bowel movements look like tar. Bleeding could be caused by something other than hemorrhoids, so you should have it checked out. If you do have hemorrhoids, your doctor or nurse can suggest treatments. But there some steps you can try on your own first. What can I do to keep from getting more hemorrhoids? The most important thing you can do is to keep from getting constipated. You should have a bowel movement at least a few times a week. When you have a bowel movement, you also should not have to push too much. Plus, your bowel movements should not be too hard, and you should not spend too much time on the toilet (for example, reading). Being constipated and having hard bowel movements can make hemorrhoids worse. Here are some steps you can take to avoid getting constipated or having hard stools: ?Eat lots of fruits, vegetables, and other foods with fiber (figure 2). Fiber helps to increase bowel movements. You need 20 to 35 grams of fiber a day to keep your bowel movements regular (table 1). If you do not get enough fiber from your diet, you can take fiber supplements. These come in the form of powders, wafers, or pills. They include psyllium seed (sample brand names: Metamucil, Konsyl), methylcellulose (sample brand name: Citrucel), polycarbophil (sample brand name: FiberCon), and wheat dextrin (sample brand name: Benefiber). If you take a fiber supplement, be sure to read the label so you know how much to take. If you're not sure, ask your doctor nurse. ?Take medicines called stool softeners such as docusate sodium (sample brand names: Colace, Dulcolax). These medicines increase the number of bowel movements you have. They are safe to take and they can prevent problems later. What can I do to reduce my symptoms? Some people feel better if they soak their buttocks in 2 or 3 inches of warm water. You can do this up to 2 to 3 times a day for 10 to 15 minutes. Do not add soap, bubble bath, or anything to the water. There are also medicines that you can get without a prescription (table 2). They are usually creams or ointments that you rub on your anus to relieve pain, itching, and swelling. Some hemorrhoid medicines come in a capsule (called a suppository) that you put inside your rectum. Others come in a cream that comes in a bottle with a nozzle that you put inside your rectum. It is OK to try these medicines. But do not use medicines that have hydrocortisone (a steroid medicine) for more than a week, unless your doctor or nurse approves. What if the self-care steps do not work? If you still have symptoms after trying the steps listed above, you might need treatments to destroy or remove the hemorrhoids. One popular treatment for hemorrhoids inside the rectum is called rubber band ligation. For this treatment, the doctor ties tiny rubber bands around the hemorrhoids. A few days later the hemorrhoids shrink and stop bleeding. Doctors can also use lasers, heat, or chemicals to destroy hemorrhoids. But if none of these options works, your doctor might suggest surgery to remove or tie off the blood vessels of the hemorrhoids. Hemorrhoids on the outside of the rectum can only be removed with surgery. *What to do: *Please continue to take your regular medications as directed. [x ] New medication prescriptions sent to your pharmacy: [[facility] ] [ ] New medication written as a paper prescription [ ] No new medications given *Please follow up with your primary care provider in 2-3 days, call for an appointment. Let them know you were seen in the Emergency Department and that we asked that you be seen for follow-up. We will electronically transmit a record of today's note if your PCP is in our system *If you do not have a primary care provider please contact [phone] to establish care with one of the [facility] primary care providers. *Return to Emergency Department if you should have any new, worsening or concerning symptoms, such as [fever greater than 101F, chills, worsening pain, persistent vomiting or other bothersome symptoms] Prescriptions: New pramoxine 1 % cream 1 applic topical QID Qty: 340 0RF Rx Instructions: Up to 5 times daily hydrocortisone acetate [Anusol-HC] 25 mg suppository 25 mg SD DAILY PRN (Reason: hemorrhoids) 5 Days Qty: 12 0RF Rx Instructions: Use once a day for a maximum of 5 days, you can use topical cream sparingly up to 2 times daily, please take a vacation after 5 days, if you still have a hemorrhoid, wait a few days and then you may start using the suppositories again. This is to prevent the skin from becoming too fragile and bleeding. hydrocortisone 2.5 % cream 1 applic topical BID PRN (Reason: skin irritation) 5 Days Qty: 20 0RF No Action metformin 500 mg tablet extended release 24 hr 500 mg PO DAILY Qty: 30 11RF valacyclovir 500 mg tablet See Rx Instructions .ROUTE .COMPLEX Qty: 90 0RF Dose Instruction: take 1 tablet by mouth once daily Rx Instructions: take 1 tablet by mouth once daily drospirenone-ethinyl estradiol [CARL (28)] 3-0.02 mg tablet 1 tab PO DAILY Qty: 84 0RF Rx Instructions: Take 1 pill at the same time daily for contraception spironolactone 50 mg tablet 50 mg PO QAM Qty: 90 3RF Rx Instructions: Take 1 tab each morning for PCOS symptoms methylphenidate HCl [Concerta] 18 mg tablet extended release 24hr 18 mg PO DAILY Qty: 30 0RF Rx Instructions: Take 1 tab each morning for ADHD symptoms. omeprazole 20 mg capsule,delayed release(DR/EC) 20 mg PO QDAY Qty: 90 3RF Rx Instructions: Take 1 capsule daily for GERD symptoms. Referrals: Lesley Cruz ARNP [Primary Care Provider] - Domingo Guzman MD [Physician] - <Fish Babin, - Last Filed: 03/06/22 18:14> Cosign ED Attending Cosignature Attestation: Dr Babin Co-Sign Statement: I was available for consultation during this patient's emergency department visit. This chart is signed by myself for administrative purposes only. I did not have direct contact with this patient during this visit. They were seen independently by the APC.
[2022-03-02] MEDS: ACETAMINOPHEN 325 MG TABLET 975 MG PO (19:52)
[2022-03-02] MEDS: IBUPROFEN 400 MG TABLET PO (19:53)
[2022-03-02] MEDS: predniSONE 20 MG TABLET PO (20:10)
== END 2022-03-02 20:14 | disposition home or self-care (01) ==
PROVIDERS: Emergency Provider Nurse Practitioner Critical Care Medicine; Family Provider Family Medicine; PCP Nurse Practitioner
DX: K64.8 Other hemorrhoids (principal)
CPT/HCPCS: 99283

== ENCOUNTER → 2022-09-18 08:07 | Outpatient (CLI) | payer SELFPAY ==
[2022-09-18 09:01] LABS: Influenza A - CEPHEID Flu A NEGATIVE (NEGATIVE); Influenza B - CEPHEID Flu B NEGATIVE (NEGATIVE); Respiratory Syncytial Virus Negative (Negative)
[2022-09-18 09:09] LABS: COVID-19 CEPHEID 4-PLEX PCR Negative (Negative)
== END ==
PROVIDERS: Family Provider Family Medicine; PCP Nurse Practitioner; Visit Provider Nurse Practitioner Family
DX: R50.9 Fever, unspecified (principal)
CPT/HCPCS: 0241U; 87070

== ENCOUNTER 2023-03-12 11:56 | Emergency (ER) | payer OTHER, SELFPAY ==
[2023-03-12] VITALS (12 sets, daily range): BP systolic 117–136; BP diastolic 64–85; PULSE 81–92; RESP 22; TEMP 36.6; O2SAT 95–100; BMI 41.3
[2023-03-12] MEDS: ONDANSETRON 4 MG/2 ML INJ IV (12:38)
[2023-03-12 12:52] LABS: Add Manual Diff / Slide Review NO; Basophils Absolute Auto 100 /uL (0-100); Basophils Percent Auto 0.5 % (0-2); Eosinophils Absolute Auto 300 /uL (0-450); Eosinophils Percent Auto 1.2 % (2-4); Hematocrit 42.8 % (36-46); Hemoglobin 14.5 g/dL (12.0-16.0); Lymphocytes Absolute Auto 2800 /uL (1100-4500); Lymphocytes Percent Auto 11.3 % (25-40); Mean Corpuscular HGB Conc 33.8 % (30-36); Mean Corpuscular Hemoglobin 27.3 PG (26-34); Mean Corpuscular Volume 80.8 fL (80-100); Monocytes Absolute Auto 1300 /uL (0-900); Monocytes Percent Auto 5.2 % (3-14); Neutrophils Absolute Auto 20700 /uL (1500-7000); Neutrophils Percent Auto 81.8 % (50-75); Platelet Count 464 X10^3/uL (150-400); Red Cell Distribution Width 14.9 % (11.6-14.8); White Blood Cell Count 25.3 X10^3/uL (4.5-11.0)
[2023-03-12 13:03] LABS: Alanine Aminotransferase 31 IU/L (<35); Albumin 4.6 g/dL (3.5-5.0); Albumin Globulin Ratio 1.2 (1.0-2.8); Alkaline Phosphatase 88 U/L (38-126); Aspartate Aminotransferase 27 IU/L (14-36); BUN Creatinine Ratio 17.1 (6-22); Bilirubin Total 0.6 mg/dL (0.2-1.3); Blood Urea Nitrogen 13 mg/dL (7-17); Calcium 9.6 mg/dL (8.4-10.2); Carbon Dioxide 22 mmol/L (22-32); Chloride 104 mmol/L (98-107); Estimated Glomerular Filt Rate > 60 mL/min (>60); Glucose 118 mg/dL (70-100); HEMOLYSIS 21 (0-50); Lipase 190 U/L (23-300); Potassium 3.8 mmol/L (3.4-5.1); Sodium 139 mmol/L (137-145); Total Protein 8.6 g/dL (6.3-8.2)
[2023-03-12] MEDS: ACETAMINOPHEN 325 MG TABLET 650 MG PO (15:56)
[2023-03-12] MEDS: SODIUM CHLORIDE 0.9% 1,000 ML 1000 ML IV (15:57)
--- NOTE | 2023-03-12 17:32 | DI.CT.S_ITS ---
PROCEDURE: CT ABDOMEN PELVIS W CON INDICATIONS: IV contrast only/upper abdominal pain TECHNIQUE: After the administration of intravenous contrast, axial sections acquired from the lung bases to the pubic symphysis. Coronal and sagittal reformats were performed. For radiation dose reduction, the following was used: automated exposure control, adjustment of mA and/or kV according to patient size. COMPARISON: [facility], CT, CT ABDOMEN PELVIS W CON, 04/22/2018, 19:12. FINDINGS: Image quality: Excellent. Lung bases: Unremarkable. Heart: No significant findings. ABDOMEN: Liver: Mild hepatomegaly and hepatic steatosis. No focal lesions. Gallbladder: Normal. Biliary ducts: Nondilated. Pancreas: Normal. Spleen: Normal size. Adrenal Glands: No nodules. Kidneys and Ureters: Symmetric enhancement. No nephrolithiasis or hydronephrosis. No hydroureter. Stomach and Bowel: Stomach, small bowel loops, and colon are unremarkable. Normal appendix. Peritoneum: No abnormal intraperitoneal fluid. No free air. Ventral Wall: No hernias. Abdominal Nodes: Numerous moderately prominent mesenteric lymph nodes are nonspecific and may be reactive. No pathologic or bulky adenopathy. No retroperitoneal adenopathy. Vessels: Aorta and inferior vena cava are normal in size. PELVIS: Pelvic Organs: Uterus and ovaries have a normal CT appearance. Bladder: Normal wall thickness. Pelvic Nodes: No enlarged lymph nodes. Miscellaneous: No hernias are seen. Bones: Unremarkable. IMPRESSION: 1. No CT evidence of acute process. 2. Mild hepatomegaly and hepatic steatosis, similar compared to the prior study. 3. Normal appendix and gallbladder. Dictated by: Guera Weaver M.D. on 03/12/2023 at 18:54 Approved by: Guera Weaver M.D. on 03/12/2023 at 18:57
--- NOTE | 2023-03-12 17:33 | DI.US.S_ITS ---
PROCEDURE: US ABDOMEN COMPLETE INDICATIONS: UPPER ABDOMINAL PAIN TECHNIQUE: Real-time scanning was performed of the abdominal and retroperitoneal organs, with image documentation. COMPARISON: [facility], CT, CT ABDOMEN PELVIS W CON, 03/12/2023, 17:42. FINDINGS: Liver: The liver demonstrates enlarged size. The liver demonstrates generalized moderately increased echogenicity. This decreases ultrasound sensitivity for detection of hepatic masses. Gallbladder: No findings of gallstones or sludge are seen. The gallbladder wall is not thickened, measuring 3 mm or less. No specific pericholecystic fluid is seen. The sonographic Carl sign is negative. Biliary ducts: Intrahepatic bile ducts are non-dilated. Extrahepatic bile duct caliber measures 3-4 mm. Normal is 6-7 mm or less in diameter, or 10 mm or less post-cholecystectomy. Pancreas: Visualized portions of the pancreas are sonographically normal. Spleen: Spleen is normal in size and homogeneous in echotexture. Kidneys: Kidneys are normal in size and echotexture. Right kidney measures 12.7 cm long; left kidney measures 12.4 cm long. No hydronephrosis or nephrolithiasis. No solid masses. Aorta: Visualized aorta is normal in caliber at less than 3 cm. Iliacs: Proximal common iliac arteries are normal in caliber at less than 2.5 cm. IVC: Intrahepatic inferior vena cava is patent. Miscellaneous: No free abdominal fluid. IMPRESSION: The gallbladder demonstrates a normal sonographic appearance. No biliary dilatation is seen. Enlarged, fatty liver. Dictated by: Douglas Gomez M.D. on 03/12/2023 at 18:04 Approved by: Douglas Gomez M.D. on 03/12/2023 at 18:05
--- NOTE | 2023-03-12 17:36 | ED_ITS ---
HPI - Nausea/Vomiting/Diarrhea <Shahid Santiago MD - Last Filed: 03/19/23 05:53> General Chief complaint: Nausea/Vomiting/Diarrhea Stated complaint: vomiting, pain up abdomen Time Seen by Provider: 03/12/23 17:18 Source: patient Mode of arrival: Ambulatory History of Present Illness HPI Narrative: Patient here for nausea vomiting and upper abdominal pain that radiates the right mid back off and on for the past 4 weeks. It worsened today. She still has her gallbladder. No fever chills. Pain is crampy. Worse with eating. Pain was 8/10 prior to arrival. Now it is 3/10 after Tylenol. Denies any chest pain. No urinary complaints. Related Data Previous Rx's Medication Instructions Recorded omeprazole 20 mg capsule,delayed 20 mg PO QDAY #90 caps 04/20/20 release metformin 500 mg tablet,extended 500 mg PO DAILY #90 tabs 04/30/22 release 24 hr valacyclovir 500 mg tablet See Rx Instructions .Route 04/30/22 .COMPLEX #90 tabs drospirenone 3 mg-ethinyl See Rx Instructions .Route 05/20/22 estradiol 0.02 mg tablet .COMPLEX #84 tabs methylphenidate HCl 27 mg 27 mg PO QAM #30 tabs 12/15/22 tablet,extended release 24 hr methylphenidate HCl 27 mg 27 mg PO QAM #30 tabs 02/02/23 tablet,extended release 24 hr methylphenidate HCl 27 mg 27 mg PO QAM #30 tabs 02/09/23 tablet,extended release 24 hr ondansetron 4 mg disintegrating 4 mg PO Q8H PRN nausea and 03/12/23 tablet vomiting #10 tabs Allergies Allergy/AdvReac Type Severity Reaction Status Date / Time No Known Drug Allergies Allergy Verified 03/12/23 12:26 Review of Systems <Shahid Santiago MD - Last Filed: 03/19/23 05:53> Review of Systems Narrative: GENERAL: negative chills, fatigue, malaise, fever, sweats. HEENT: negative sinus pain, ear pain, sore throat RESPIRATORY: negative dyspnea, cough CARDIOVASCULAR: negative chest pain, palpitations GASTROINTESTINAL: Positive nausea, vomiting, abdominal pain : negative dysuria, frequency, hematuria MUSCULOSKELETAL: negative muscle or bony pain SKIN: negative rash, skin lesions NEUROLOGIC: negative weakness, numbness ROS Unobtainable: All systems reviewed & are unremarkable except as noted in HPI and below Patient History <Shahid Santiago MD - Last Filed: 03/19/23 05:53> Medical History Alcohol cessation counseling Amenorrhea due to medroxyprogesterone Anxiety Asthma Cannabis dependence, daily use 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 Cyst Depression Depression with anxiety Gastroesophageal reflux disease Herpes simplex History of ovarian cyst Menorrhagia Obesity PCOS (polycystic ovarian syndrome) Vaginitis Surgical History History of colonoscopy Status post delivery (04/09/11) Family History Father Diabetes mellitus Grandmother Stroke Grandfather Cancer Social History Smoking Status: Never smoker Smoking Status: Never smoker alcohol intake frequency: 0-2 drinks per day Substance Use Type: marijuana Exam <Shahid Santiago MD - Last Filed: 03/19/23 05:53> Narrative Exam Narrative: GENERAL: in no distress, not toxic not dyspneic HEAD: Normocephalic. EYES: Pupils equal round ENT: Mucous membranes moist. NECK: Trachea midline. CARDIOVASCULAR: Regular rate and rhythm without murmurs RESPIRATORY: Clear to auscultation. Breath sounds equal bilaterally. No wheezes, rales, or rhonchi. GASTROINTESTINAL: Abdomen soft, reproducible epigastric right upper quadrant tenderness. Positive Carl sign. No peritoneal signs. Bowel sounds are present. No CVA tenderness EXTREMITIES: No gross deformities. BACK: No flank tenderness. NEURO: AOx4. SKIN: Warm and dry PSYCH: Not anxious, is cooperative Initial Vital Signs Initial Vital Signs: Vital Signs Temperature 97.9 F 03/12/23 12:21 Pulse Rate 90 03/12/23 12:21 Respiratory Rate 22 03/12/23 12:21 Blood Pressure 124/82 03/12/23 12:21 Pulse Oximetry 95 03/12/23 12:21 Oxygen Delivery Method Room Air 03/12/23 12:21 <Mamta Diaz DO - Last Filed: 03/13/23 03:20> Initial Vital Signs Initial Vital Signs: Vital Signs Temperature 97.9 F 03/12/23 12:21 Pulse Rate 90 03/12/23 12:21 Respiratory Rate 22 03/12/23 12:21 Blood Pressure 124/82 03/12/23 12:21 Pulse Oximetry 95 03/12/23 12:21 Oxygen Delivery Method Room Air 03/12/23 12:21 Course <Shahid Santiago MD - Last Filed: 03/19/23 05:53> Orders Ordered: Discontinued Medications Acetaminophen (Acetaminophen 325 Mg Tablet) 650 mg PO NOW ONE Stop: 03/12/23 15:50 Last Admin: 03/12/23 15:56 Dose: 650 mg Documented By: EDILIA Sodium Chloride (Normal Saline 0.9%) 1,000 mls @ 1,000 mls/hr IV BOLUS ONE Stop: 03/12/23 16:47 Last Infusion: 03/12/23 17:51 Dose: 0 mls/hr Documented By: Admin: 03/12/23 15:57 Dose: 1,000 mls/hr Documented By: EDILIA Ondansetron HCl (Ondansetron 4 Mg Odt) 4 mg PO NOW PRN PRN Reason: Nausea And Vomiting Ondansetron HCl (Ondansetron 4 Mg/2 Ml Inj) 4 mg IV NOW PRN PRN Reason: Nausea And Vomiting Last Admin: 03/12/23 12:38 Dose: 4 mg Documented By: VLA Vital Signs Vital signs: Vital Signs - 8 hr 03/12/23 12:21 03/12/23 14:44 03/12/23 14:44 Temperature 97.9 F Pulse Rate 90 85 Respiratory Rate 22 Blood Pressure 124/82 134/82 Pulse Oximetry 95 99 Oxygen Delivery Method Room Air 03/12/23 15:00 03/12/23 15:00 03/12/23 15:30 Temperature Pulse Rate 81 Respiratory Rate Blood Pressure 136/64 132/76 Pulse Oximetry 100 Oxygen Delivery Method 03/12/23 15:30 03/12/23 16:00 03/12/23 16:00 Temperature Pulse Rate 82 91 H Respiratory Rate Blood Pressure 117/74 Pulse Oximetry 100 100 Oxygen Delivery Method Room Air 03/12/23 16:56 03/12/23 16:57 03/12/23 16:57 Temperature Pulse Rate 86 82 Respiratory Rate Blood Pressure 124/78 Pulse Oximetry 100 100 Oxygen Delivery Method 03/12/23 17:00 03/12/23 17:00 03/12/23 17:30 Temperature Pulse Rate 81 Respiratory Rate Blood Pressure 117/81 125/85 Pulse Oximetry 99 Oxygen Delivery Method 03/12/23 17:30 03/12/23 18:07 03/12/23 18:30 Temperature Pulse Rate 82 92 H 85 Respiratory Rate Blood Pressure Pulse Oximetry 100 99 99 Oxygen Delivery Method Room Air Room Air 03/12/23 19:00 Temperature Pulse Rate 84 Respiratory Rate Blood Pressure Pulse Oximetry 99 Oxygen Delivery Method Room Air <Mamta Diaz, - Last Filed: 03/13/23 03:20> Orders Ordered: Discontinued Medications Acetaminophen (Acetaminophen 325 Mg Tablet) 650 mg PO NOW ONE Stop: 03/12/23 15:50 Last Admin: 03/12/23 15:56 Dose: 650 mg Documented By: EDILIA Sodium Chloride (Normal Saline 0.9%) 1,000 mls @ 1,000 mls/hr IV BOLUS ONE Stop: 03/12/23 16:47 Last Infusion: 03/12/23 17:51 Dose: 0 mls/hr Documented By: Admin: 03/12/23 15:57 Dose: 1,000 mls/hr Documented By: EDILIA Ondansetron HCl (Ondansetron 4 Mg Odt) 4 mg PO NOW PRN PRN Reason: Nausea And Vomiting Ondansetron HCl (Ondansetron 4 Mg/2 Ml Inj) 4 mg IV NOW PRN PRN Reason: Nausea And Vomiting Last Admin: 03/12/23 12:38 Dose: 4 mg Documented By: VAL Vital Signs Vital signs: Vital Signs - 8 hr 03/12/23 12:21 03/12/23 14:44 03/12/23 14:44 Temperature 97.9 F Pulse Rate 90 85 Respiratory Rate 22 Blood Pressure 124/82 134/82 Pulse Oximetry 95 99 Oxygen Delivery Method Room Air 03/12/23 15:00 03/12/23 15:00 03/12/23 15:30 Temperature Pulse Rate 81 Respiratory Rate Blood Pressure 136/64 132/76 Pulse Oximetry 100 Oxygen Delivery Method 03/12/23 15:30 03/12/23 16:00 03/12/23 16:00 Temperature Pulse Rate 82 91 H Respiratory Rate Blood Pressure 117/74 Pulse Oximetry 100 100 Oxygen Delivery Method Room Air 03/12/23 16:56 03/12/23 16:57 03/12/23 16:57 Temperature Pulse Rate 86 82 Respiratory Rate Blood Pressure 124/78 Pulse Oximetry 100 100 Oxygen Delivery Method 03/12/23 17:00 03/12/23 17:00 03/12/23 17:30 Temperature Pulse Rate 81 Respiratory Rate Blood Pressure 117/81 125/85 Pulse Oximetry 99 Oxygen Delivery Method 03/12/23 17:30 03/12/23 18:07 03/12/23 18:30 Temperature Pulse Rate 82 92 H 85 Respiratory Rate Blood Pressure Pulse Oximetry 100 99 99 Oxygen Delivery Method Room Air Room Air 03/12/23 19:00 Temperature Pulse Rate 84 Respiratory Rate Blood Pressure Pulse Oximetry 99 Oxygen Delivery Method Room Air MDM - Nausea/Vomiting/Diarrhea <Shahid Santiago MD - Last Filed: 03/19/23 05:53> Lab Data 03/12/23 12:30 03/12/23 12:30 Labs: Lab Results 03/12/23 03/12/23 03/12/23 Range/Units 12:30 12:30 12:30 WBC 25.3 H (4.5-11.0) X10^3/uL RBC 5.30 H (4.0-5.2) X10^6/uL Hgb 14.5 (12.0-16.0) g/dL Hct 42.8 (36-46) % MCV 80.8 (80-100) fL MCH 27.3 (26-34) PG MCHC 33.8 (30-36) % RDW 14.9 H (11.6-14.8) % Plt Count 464 H (150-400) X10^3/uL Neut % (Auto) 81.8 H (50-75) % Lymph % (Auto) 11.3 L (25-40) % [place] % (Auto) 5.2 (3-14) % Eos % (Auto) 1.2 L (2-4) % Baso % (Auto) 0.5 (0-2) % Neut # (Auto) 50877 H (5198-7083) /uL Lymph # (Auto) 2800 (6256-8456) /uL [place] # (Auto) 1300 H (0-900) /uL Eos # (Auto) 300 (0-450) /uL Baso # (Auto) 100 (0-100) /uL Sodium 139 (137-145) mmol/L Potassium 3.8 (3.4-5.1) mmol/L Chloride 104 (98-107) mmol/L Carbon Dioxide 22 (22-32) mmol/L BUN 13 (7-17) mg/dL Creatinine 0.76 (0.52-1.04) mg/dL Estimated GFR > 60 (>60) mL/min BUN/Creatinine Ratio 17.1 (6-22) Glucose 118 H (70-100) mg/dL Lactate 1.0 (0.7-2.1) mmol/L Calcium 9.6 (8.4-10.2) mg/dL Total Bilirubin 0.6 (0.2-1.3) mg/dL AST 27 (14-36) IU/L ALT 31 (<35) IU/L Alkaline Phosphatase 88 (38-126) U/L Total Protein 8.6 H (6.3-8.2) g/dL Albumin 4.6 (3.5-5.0) g/dL Globulin 4.0 (1.7-4.1) g/dL Albumin/Globulin Ratio 1.2 (1.0-2.8) Lipase 190 (23-300) U/L Point of Care Testing Test Results Negative Urine Dip Bedside Urine Glucose Negative Bedside Urine Bilirubin - Negative Bedside Urine Ketone - Negative Urine Specific [place] 1.025 Bedside Urine Occult Blood - Negative Bedside Urine pH 6.0 Bedside Urine Protein - Negative Bedside Urine Urobilinogen - Negative Bedside Urine Nitrite - Negative Bedside Urine Leukocytes - Negative Esterase [facility] Narrative Medical decision making narrative: Patient here for nausea vomiting and upper abdominal pain that radiates the right mid back off and on for the past 4 weeks. It worsened today. She still has her gallbladder. No fever chills. Pain is crampy. Worse with eating. Pain was 8/10 prior to arrival. Now it is 3/10 after Tylenol. Denies any chest pain. No urinary complaints. After history and exam CBC CMP lipase Tylenol Zofran normal saline CT abdomen pelvis ultrasound abdomen urinalysis test MDM CC: Abdominal pain nausea and vomiting Complicating co-morbidities: None Data collected from: Patient Differential considered: Includes but not limited to cholecystitis cholelithiasis biliary dyskinesia symptomatic cholelithiasis pancreatitis gastritis bowel obstruction Exam documented above, pertinent findings include: Tender epigastric and right upper quadrant, positive Carl sign Lab Test results independently reviewed as above. Pertinent findings: WBC 25.3 hemoglobin 14.5 hematocrit 42.8 AST 27 ALT 31 lactic acid 1.0 lipase 190 total bilirubin 0.6 Imaging studies independently reviewed: Consultations: Treatments: Zofran Tylenol normal saline Re-evaluations: Discussion: 6:00 p.m.. Jack: Sign out Dr Diaz, CT imaging pending. Ultrasound pending. Diagnosis: <Mamta Diaz, DO - Last Filed: 03/13/23 03:20> Lab Data Labs: Lab Results 03/12/23 03/12/23 03/12/23 Range/Units 12:30 12:30 12:30 WBC 25.3 H (4.5-11.0) X10^3/uL RBC 5.30 H (4.0-5.2) X10^6/uL Hgb 14.5 (12.0-16.0) g/dL Hct 42.8 (36-46) % MCV 80.8 (80-100) fL MCH 27.3 (26-34) PG MCHC 33.8 (30-36) % RDW 14.9 H (11.6-14.8) % Plt Count 464 H (150-400) X10^3/uL Neut % (Auto) 81.8 H (50-75) % Lymph % (Auto) 11.3 L (25-40) % [place] % (Auto) 5.2 (3-14) % Eos % (Auto) 1.2 L (2-4) % Baso % (Auto) 0.5 (0-2) % Neut # (Auto) 18111 H (4708-0311) /uL Lymph # (Auto) 2800 (0676-8794) /uL [place] # (Auto) 1300 H (0-900) /uL Eos # (Auto) 300 (0-450) /uL Baso # (Auto) 100 (0-100) /uL Sodium 139 (137-145) mmol/L Potassium 3.8 (3.4-5.1) mmol/L Chloride 104 (98-107) mmol/L Carbon Dioxide 22 (22-32) mmol/L BUN 13 (7-17) mg/dL Creatinine 0.76 (0.52-1.04) mg/dL Estimated GFR > 60 (>60) mL/min BUN/Creatinine Ratio 17.1 (6-22) Glucose 118 H (70-100) mg/dL Lactate 1.0 (0.7-2.1) mmol/L Calcium 9.6 (8.4-10.2) mg/dL Total Bilirubin 0.6 (0.2-1.3) mg/dL AST 27 (14-36) IU/L ALT 31 (<35) IU/L Alkaline Phosphatase 88 (38-126) U/L Total Protein 8.6 H (6.3-8.2) g/dL Albumin 4.6 (3.5-5.0) g/dL Globulin 4.0 (1.7-4.1) g/dL Albumin/Globulin Ratio 1.2 (1.0-2.8) Lipase 190 (23-300) U/L Point of Care Testing Test Results Negative Urine Dip Bedside Urine Glucose Negative Bedside Urine Bilirubin - Negative Bedside Urine Ketone - Negative Urine Specific [place] 1.025 Bedside Urine Occult Blood - Negative Bedside Urine pH 6.0 Bedside Urine Protein - Negative Bedside Urine Urobilinogen - Negative Bedside Urine Nitrite - Negative Bedside Urine Leukocytes - Negative Esterase Imaging Data CT scan - abdomen/pelvis: Radiologist's Impression: PROCEDURE:? CT ABDOMEN PELVIS W CON ? INDICATIONS:? IV contrast only/upper abdominal pain ? TECHNIQUE:? After the administration of intravenous contrast, axial sections acquired from the lung bases to the pubic symphysis.? Coronal and sagittal reformats were performed.? For radiation dose reduction, the following was used:? automated exposure control, adjustment of mA and/or kV according to patient size.? ? COMPARISON:? [facility], CT, CT ABDOMEN PELVIS W CON, 04/22/2018, 19:12. ? FINDINGS:? Image quality:? Excellent.? ? Lung bases:? Unremarkable. Heart:? No significant findings. ? ABDOMEN: Liver:? Mild hepatomegaly and hepatic steatosis.? No focal lesions. Gallbladder:? Normal. Biliary ducts:? Nondilated. Pancreas:? Normal. Spleen:? Normal size. Adrenal Glands:? No nodules. Kidneys and Ureters: Symmetric enhancement.? No nephrolithiasis or hydronephrosis.? No hydroureter. ? Stomach and Bowel:? Stomach, small bowel loops, and colon are unremarkable.? Normal appendix. Peritoneum:? No abnormal intraperitoneal fluid.? No free air.? ? Ventral Wall: ? No hernias.? Abdominal Nodes:? Numerous moderately prominent mesenteric lymph nodes are nonspecific and may be reactive.? No pathologic or bulky adenopathy.? No retroperitoneal adenopathy. Vessels:? Aorta and inferior vena cava are normal in size.? ? PELVIS: Pelvic Organs:? Uterus and ovaries have a normal CT appearance. Bladder:? Normal wall thickness. Pelvic Nodes: No enlarged lymph nodes.? Miscellaneous: No hernias are seen. ? ? ? Bones:? Unremarkable.? IMPRESSION:? ? 1. No CT evidence of acute process. ? 2. Mild hepatomegaly and hepatic steatosis, similar compared to the prior study. ? 3. Normal appendix and gallbladder.? ? ? Dictated by: Guera Weaver M.D. on 03/12/2023 at 18:54 US - abdomen: Radiologist's Impression: PROCEDURE:? US ABDOMEN COMPLETE ? INDICATIONS:? UPPER ABDOMINAL PAIN ? TECHNIQUE:? Real-time scanning was performed of the abdominal and retroperitoneal organs, with image documentation.? ? COMPARISON:? [facility], CT, CT ABDOMEN PELVIS W CON, 03/12/2023, 17:42. ? FINDINGS:? ? Liver:? The liver demonstrates enlarged size. The liver demonstrates generalized moderately increased echogenicity. This decreases ultrasound sensitivity for detection of hepatic masses.? ? Gallbladder:? No findings of gallstones or sludge are seen.? The gallbladder wall is not thickened, measuring 3 mm or less.? No specific pericholecystic fluid is seen.? The sonographic Carl sign is negative.? ? Biliary ducts:? Intrahepatic bile ducts are non-dilated.? Extrahepatic bile duct caliber measures 3-4 mm.? Normal is 6-7 mm or less in diameter, or 10 mm or less post-cholecystectomy.? ? Pancreas:? Visualized portions of the pancreas are sonographically normal.? ? Spleen:? Spleen is normal in size and homogeneous in echotexture.? ? Kidneys:? Kidneys are normal in size and echotexture.? Right kidney measures 12.7 cm long; left kidney measures 12.4 cm long.? No hydronephrosis or nephrolithiasis.? No solid masses.? ? Aorta:? Visualized aorta is normal in caliber at less than 3 cm.? ? Iliacs:? Proximal common iliac arteries are normal in caliber at less than 2.5 cm.? ? IVC:? Intrahepatic inferior vena cava is patent.? ? Miscellaneous:? No free abdominal fluid.? ? ? IMPRESSION:? The gallbladder demonstrates a normal sonographic appearance. No biliary dilatation is seen. ? Enlarged, fatty liver. ? ? ? Dictated by: Douglas Gomez M.D. on 03/12/2023 at 18:04? [facility] Narrative Medical decision making narrative: Patient here for nausea vomiting and upper abdominal pain that radiates the right mid back off and on for the past 4 weeks. It worsened today. She still has her gallbladder. No fever chills. Pain is crampy. Worse with eating. Pain was 8/10 prior to arrival. Now it is 3/10 after Tylenol. Denies any chest pain. No urinary complaints. After history and exam CBC CMP lipase Tylenol Zofran normal saline CT abdomen pelvis ultrasound abdomen urinalysis test [facility] CC: Abdominal pain nausea and vomiting Complicating co-morbidities: None Data collected from: Patient Differential considered: Includes but not limited to cholecystitis cholelithiasis biliary dyskinesia symptomatic cholelithiasis pancreatitis gastritis bowel obstruction Exam documented above, pertinent findings include: Tender epigastric and right upper quadrant, positive Carl sign Lab Test results independently reviewed as above. Pertinent findings: WBC 25.3 hemoglobin 14.5 hematocrit 42.8 AST 27 ALT 31 lactic acid 1.0 lipase 190 total bilirubin 0.6 Imaging studies independently reviewed: Consultations: Treatments: Zofran Tylenol normal saline Re-evaluations: Discussion: 6:00 p.m.. Jack: Sign out Dr Diaz, CT imaging pending. Ultrasound pending. Diagnosis: Patient signed out to me by Dr. Santiago, seen evaluated patient myself overall sitting up looks well mild pain epigastric and right upper quadrant pain symptoms pretty classic for cholecystitis or cholelithiasis. Ultrasound and CT are negative. No elevated liver enzymes or bilirubin. May need a HIDA scan sounds like she is intermittent vomiting 1 to 2 times a week her month. Other possibility may be cyclic vomiting syndrome. She is given Zofran to go home with. Discharge Plan Departure Patient Disposition: Home Clinical Impression: Cyclic vomiting syndrome Instructions: DI for Vomiting -- Adult Activity Restrictions/Additional Instructions: *You have been diagnosed with vomiting *What to do: I do recommend that you have a HIDA scan this can be arranged as an outpatient with her primary care provider. Please in continue fluids as tolerated. Her white count was elevated today but does not appear to be due to , probably stress reaction please have this rechecked. Infection *Continue to take medications as directed Zofran 4 mg every 8 hours if needed for nausea or vomiting *Follow up with your primary care provider in 2-3 days or call [phone] *Return to ER if you should have persistent vomiting increasing pain fever or any new, worsening or concerning symptoms Prescriptions: New ondansetron 4 mg tablet,disintegrating 4 mg PO Q8H PRN (Reason: nausea and vomiting) Qty: 10 0RF No Action drospirenone-ethinyl estradiol 3-0.02 mg tablet See Rx Instructions .ROUTE .COMPLEX Qty: 84 3RF Dose Instruction: take 1 tablet by mouth daily AT THE SAME TIME DAILY FOR CONTRACEPTION Rx Instructions: take 1 tablet by mouth daily AT THE SAME TIME DAILY FOR CONTRACEPTION methylphenidate HCl 27 mg tablet extended release 24hr 27 mg PO QAM Qty: 30 0RF methylphenidate HCl 27 mg tablet extended release 24hr 27 mg PO QAM Qty: 30 0RF methylphenidate HCl 27 mg tablet extended release 24hr 27 mg PO QAM Qty: 30 0RF omeprazole 20 mg capsule,delayed release(DR/EC) 20 mg PO QDAY Qty: 90 3RF Rx Instructions: Take 1 capsule daily for GERD symptoms. metformin 500 mg tablet extended release 24 hr 500 mg PO DAILY Qty: 90 3RF valacyclovir 500 mg tablet See Rx Instructions .ROUTE .COMPLEX Qty: 90 3RF Dose Instruction: take 1 tablet by mouth once daily Rx Instructions: take 1 tablet by mouth once daily Referrals: Lesley Cruz ARNP [Primary Care Provider] - Stand Alone Forms: Patient Portal/API
== END 2023-03-12 19:46 | disposition home or self-care (01) ==
PROVIDERS: Emergency Medicine; Emergency Provider Emergency Medicine; Family Provider Family Medicine; PCP Nurse Practitioner
DX: R11.15 Cyclical vomiting syndrome unrelated to migraine (principal); R10.10 Upper abdominal pain, unspecified; Z79.899 Other long term (current) drug therapy
CPT/HCPCS: 36415; 74177; 76700; 80053; 81003; 81025; 83605; 83690; 85025; 96361; 96374; 99284; 99285; J2405; Q9967

== ENCOUNTER → 2025-01-26 17:30 | Outpatient (CLI) | payer OTHER, SELFPAY | LOC: LAB 17:31 | PROVIDERS: Family Provider Family Medicine; PCP Nurse Practitioner; Visit Provider Physician Assistant | DX: R30.0 Dysuria (principal) | CPT/HCPCS: 87077; 87086; 87147 ==